=== PATIENT | female | born 1995 | race Caucasian/White ===

== ENCOUNTER 2024-05-05 21:44 | Emergency (ER) | payer OTHER, SELFPAY ==
[2024-05-05 21:50] VITALS: BP 127/77; PULSE 96; TEMP 36.7; O2SAT 95; BMI 24.4
--- NOTE | 2024-05-05 21:56 | XR_ITS ---
The [address] [address] Patient Name: GENE SIMMONS MRN: [id number] date: 1995 Sex: F Assigned Patient Location: ER Current Patient Location: ED.MAIN Accession/Order Number: [id number] Exam Date: 05/05/2024 22:11 Report Date: 05/05/2024 22:56 At the request of: PEREZ FREEMAN Procedure: XR chest 2V EXAM: XR chest 2V HISTORY: short of breath COMPARISON: None. TECHNIQUE: PA and lateral chest obtained. FINDINGS: There are patchy nodular reticular nodular infiltrates in both upper lobes. Suspected biapical pneumonia likely atypical variety slightly more prominent on the right. Sparing of lung bases and right middle lobe and lingula. No pleural effusion. Normal heart size and vasculature. Normal osseous structures. XR/XR chest 2V IMPRESSION: Bilateral upper lobe pneumonia suspected, right more than left. There may be a component of the mild bronchiectasis in right upper lobe, not mentioned above. Attention on follow-up imaging. Electronically authenticated by: GRETA CABRERA Date: 05/05/2024 22:56
[2024-05-05 22:07] VITALS: O2SAT 95
--- NOTE | 2024-05-05 22:09 | ED.SOB1 ---
HPI - SOB/Dyspnea General Chief Complaint: Shortness of Breath/Dyspnea Stated Complaint: SOB Time Seen by Provider: 05/05/24 22:02 Source: patient Mode of arrival: walk-in Limitations: no limitations History of Present Illness HPI Narrative: 29-year-old female presents for cough. She has been coughing up thick yellow phlegm and has had the symptoms for about 3 weeks. She finished a course of Cipro about 5 days ago, she has cystic fibrosis. She did not improve. No hemoptysis or known fever. 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 Related Data Previous Rx's ?Medication ?Instructions ?Recorded azithromycin 250 mg tablet See Rx Instructions PO .COMPLEX #6 05/05/24 (Zithromax Z-Bruce) tabs ciprofloxacin HCl 500 mg tablet 500 mg PO Q12H #20 tabs 05/05/24 (Cipro) Allergies Allergy/AdvReac Type Severity Reaction Status Date / Time No Known Drug Allergies Allergy Verified 05/05/24 21:56 Review of Systems ROS Narrative A ten point review of systems is negative except as noted above. PFSH PFSH Social History Little interest or pleasure in doing things: not at all Feeling down, depressed, or hopeless: not at all Exam Narrative Exam Narrative: Nurses note and vital signs reviewed and patient is not hypoxic. General: The patient appears well and in no apparent distress. Patient is resting comfortably on cart. Skin: Warm, dry, no pallor noted. There is no rash noted. Head: Normocephalic, atraumatic Eye: Normal conjunctiva, no drainage Ears, Nose, Mouth, and Throat: oral mucosa is moist. Nares patent. Cardiovascular: Regular Rate and Rhythm Respiratory: Patient is in no distress, no accessory muscle use, lungs are clear to auscultation, no wheezing, rales or rhonchi Back: non-tender GI: Soft and nontender Musculoskeletal: The patient has no evidence of calf tenderness, no pitting edema, symmetrical pulses noted bilaterally Neurological: A&O, normal speech Psychiatric: Cooperative Constitutional Vital Signs, click to edit/add: Last Vital Signs Temp 98.1 F 05/05/24 21:50 Pulse 96 H 05/05/24 21:50 Resp 18 05/05/24 21:50 BP 127/77 05/05/24 21:50 Pulse Ox 95 05/05/24 22:07 O2 Del Method Room Air 05/05/24 22:07 Course Vital Signs Vital signs: Vital Signs Temperature 98.1 F 05/05/24 21:50 Pulse Rate 96 H 05/05/24 21:50 Respiratory Rate 18 05/05/24 21:50 Blood Pressure 127/77 05/05/24 21:50 Pulse Oximetry 95 05/05/24 21:50 Oxygen Delivery Method Room Air 05/05/24 21:50 Temperature 98.1 F 05/05/24 21:50 Pulse Rate 96 H 05/05/24 21:50 Respiratory Rate 18 05/05/24 21:50 Blood Pressure 127/77 05/05/24 21:50 Pulse Oximetry 95 05/05/24 22:07 Oxygen Delivery Method Room Air 05/05/24 22:07 MDM - SOB/Dyspnea MDM Narrative Medical decision making narrative: Bilateral upper lobe pneumonia is identified on the x-ray per radiologist. She was recently on Cipro and did not improve. She has cystic fibrosis and is at risk for Pseudomonas. She was given both IV Zithromax and IV Cipro here and is prescribed p.o. Zithromax and Cipro for home and she will follow-up promptly with her hospice community liaison. Return to ED if symptoms worsen. Treatment diagnosis and follow-up were discussed with the patient. COVID and influenza test were negative. Differential Diagnosis Differential diagnosis: Likely community acquired pneumonia and other (COVID, influenza, URI) Lab Data Attestation: I reviewed the patient's lab results. Labs: Lab Results 05/05/24 Range/Units 21:59 Influenza Type A Ag Negative Influenza Type B Ag Negative SARS-CoV-2 Ag (CV2AG) Negative (NEGATIVE) Imaging Data Chest x-ray: Radiologist's impression: ITS Impressions Chest X-Ray 05/05/24 21:56 IMPRESSION: Bilateral upper lobe pneumonia suspected, right more than left. There may be a component of the mild bronchiectasis in right upper lobe, not mentioned above. Attention on follow-up imaging. Electronically authenticated by: GRETA CABRERA Date: 05/05/2024 22:56 Discharge Plan Discharge Chief Complaint: Shortness of Breath/Dyspnea Clinical Impression: Pneumonia Patient Disposition: Home, Self-Care Time of Disposition Decision: 23:41 Condition: Good Mode of Transportation: Private Vehicle Prescriptions / Home Meds: New azithromycin [Zithromax Z-Bruce] 250 mg tablet See Rx Instructions .ROUTE .COMPLEX Qty: 6 0RF Rx Instructions: For 250 mg dose pack: take 500 mg today (day 1), then 250 mg for 4 days (days 2-5) ciprofloxacin HCl [Cipro] 500 mg tablet 500 mg PO Q12H Qty: 20 0RF Print Language: Persian Instructions: Community Acquired Pneumonia (ED) Additional Instructions: Call your hospice community liaison in the morning and have prompt follow-up. Referrals: Physician,Non-Staff, MD [Physician] - 1 week
[2024-05-05 22:22] LABS: Influenza Virus A Antigen Negative; Influenza Virus B Antigen Negative; Internal Control Within Normal Limits; SARS-CoV-2 Ag NEGATIVE (NEGATIVE)
[2024-05-05] MEDS: AZITHROMYCIN 500 MG in 0.9 % SODIUM CHLORIDE 250 ML 250 MG IV (23:49)
[2024-05-06] MEDS: CIPROFLOXACIN HCL 500 MG TABLET PO (01:00)
[2024-05-06] MEDS: AZITHROMYCIN 250 MG TABLET 500 MG PO (01:00)
== END 2024-05-06 01:05 | disposition home or self-care (01) ==
PROVIDERS: Emergency Provider Emergency Medicine
DX: J18.9 Pneumonia, unspecified organism (principal); E84.9 Cystic fibrosis, unspecified
CPT/HCPCS: 71046; 87804; 87811; 96365; 99285; J0456

== ENCOUNTER 2024-11-03 19:26 | Emergency (ER) | payer SELFPAY ==
[2024-11-03] VITALS (23 sets, daily range): BP systolic 122; BP diastolic 82; PULSE 97–143; TEMP 37.3–39.4; O2SAT 98–100; BMI 25.4
--- NOTE | 2024-11-03 19:45 | ECG_ITS ---
The [facility] Test Date: 2024-11-03 Pat Name: GENE SIMMONS Department: Room: - Gender: Female Ceo Na: : 1995 Requested By: [id number] Order Number: [id number] Reading MD: SID WHITING M.D. Measurements Intervals [place] Rate: 138 P: 50 IL: 116 QRS: 48 QRSD: 72 T: 49 QT: 270 QTc: 351 Interpretive Statements 1120 Sinus tachycardia 2210 Short [place] interval 4068 Nonspecific [place] abnormality 8305 Short QTc interval 9150 abnormal ECG Compared to ECG 10/27/2016 22:57:16 Short [place] interval now present Heart rate has increased Electronically Signed On 11-04-2024 6:51:14 EDT by SID WHITING M.D.
--- OUTSIDE RECORDS SUMMARY | 2024-11-03 19:47 | XMS_ITS | CCD ---
Author Organization [facility] Care Team Providers Care Dustless Operator Name Role Phone ESTEVAN DALY Unavailable Unavailable JACOBSEN SILVER Houser Unavailable Unavailable ERASMO DAVIS Consulting Unavailable MARVIN KILLIAN Admitting Unavailable MARVIN KILLIAN Attending Unavailable Karen Rg Consulting Unavailable DO Michael Campbell Attending Provider [facility] Primary Care Provider DO Michael Christianson Attending Provider [phone] MD Lissette Merino Referring Provider NONE, XXXX Primary Care Physician Unavailab Martina Allison Unavailable Unavailable Óscar Morales Admitting Unavailable Óscar Morales Referring Unavailable Óscar Morales Attending Unavailable Óscar Morales Referring Unavailable Cornelius Moralesson Moncho Attending Unavailable Cornelius Moralesson A Admitting Unavailable Physician, No Pcp Primary Care Provider UnavailJEANETTE Nogueira Attending Unavailable PHYSICIAN, NO PCP Primary Care Unavailable JEREMY HERNANDEZ Attending Unavailable NO, PHYSICIAN Primary Care Unavailable MARGIE LOUIS Consulting Xander more Mast - FHSJeanette Attending Unavailable Mast - [facility], Jeanette Admitting Unavailable Reese Murphy Referring Unavailable Anup EL-Iqra MEEHAN Primary Care Provider Medications Current Medications Medication Drug Class(es) Dates Sig (Normalized) Sig (Original) acetaminophen 325 mg / oxyCODONE hydrochloride 5 mg oral tablet (1 source) Opioid Agonist Start: 07-25-2022 Percocet 5 mg-325 mg oral tablet See Instructions, 40 tab(s), Refill(s) 0, 1-2 tab(s) Oral q4hr, [facility]/pharmacy #[id number], 152, cm, 07/18/22 6:18:00 EST, Height/Length Dosing, 59.8, kg, 07/18/22 6:18:00 EST, Weight Dosing Start Date: 07/25/22 Status: Ordered albuterol 0.83 mg/ml inhalation solution (20 sources) beta2-Adrenergic Agonist Start: 05-04-2023 take 3 mL by inhalation every four hours albuterol (PROVENTIL,VENTOLI N) 2.5 mg /3 mL (0.083 %) nebulizer solution Indications: Cystic fibrosis exacerbation ([facility]) Inhale 3 mL (2.5 mg total) by nebulization every 4 (four) hours while awake. 75 mL 12 05/04/2023 Active Start: 04-22-2023 albuterol (PRO VENTIL,VENTOLIN) 2.5 mg /3 mL (0.083 %) nebulizer solution Indications: Cystic fibrosis of the lung ([facility]) Twice daily and every 4 hours as needed 360 mL 11 04/22/2023 Active Start: 04-22-2023 albuterol (PRO AIR HFA) 90 mcg/actuation inhaler Indications: Cystic fibrosis of the lung ([facility]) , Mild intermittent asthma without complication Daily and every 4 hours as needed 18 g 11 04/22/2023 Active Start: 07-17-2022 take 2.5 mg by inhal ation every six hours albuterol 0.083% Inh Cindy 3 mL 2.5 mg, 3 mL, NEB, q6hr, Refill(s) 0, cycstic fibrosis, Other (see comment) Start Date: 07/17/22 Status: Ordered Start: 07-17-2022 take 2 puff(s) by in halation every six hours Albuterol (Eqv-ProAir HFA) 2 puff(s), Inhalation, q6hr, Refill(s) 0, cycstic fibrosis, Other (see comment) Start Date: 07/17/22 Status: Ordered take 1.25 mg by inha lation every six hours as needed albuterol 1.25 mg/3 mL nebulizer solution Take 3 mL (1.25 mg total) by nebulization every 6 (six) hours if needed for wheezing. 0 Active amylase 170421 unt / lipase 49138 unt / protease 44528 unt delayed release oral capsule (9 sources) Start: 04-22-2023 take 9 capsules by mouth at mealtime, then take 4 capsules by mouth once daily at mealtime, then take 3 capsules by mouth once daily CREON 24,000-76,000 -120,000 unit capsule,delayed release(DR/EC) Indications: Cystic fibrosis of the lung (CMS-HCC) , Cystic fibrosis of pancreas (CMS-HCC) Takes 9 capsules with meals and 4 capsules with snacks by mouth daily. Allowing for 3 meals and 3 snacks per day. 1170 capsule 11 04/22/2023 Active Start: 07-17-2022 Creon See Inst ructions, with each meal and snack Cystic fibrosis, Refills(s) 0, Other (see comment) Start Date: 07/17/22 Status: Ordered Start: 03-10-2022 Lipase-Proteas e-Amylase (Creon) 24,000-76,000 -120,000 unit Capsule,Delayed Release(Dr/Ec) Active 9 CAP PO Use as Directed March 10, 2022 12:00am 9 caps with meals, 4 with snacks AquADEKs oral capsule (2 sources) Start: 07-17-2022 AquADEKs oral capsule 1 cap(s), Oral, Daily, 60 cap(s), Refill(s) 0, Prophylaxis Start Date: 07/17/22 Status: Ordered azithromycin 500 mg oral tablet (9 sources) Macrolide Antimicrobial Start: 05-04-2023 End: 06-20-2024 azithromycin (ZITHROMAX) 500 mg tablet Indications: Cystic fibrosis of the lung (CMS-HCC) Take 500mg by mouth Thursday, Thursday, and Thursday. 12 tablet 11 05/04/2023 06/20/2024 Active Start: 07-17-2022 take 1 tablet by kenia th once daily Zithromax 500 mg oral tablet 500 mg = 1 tab(s), Oral, Daily, cystic fibrosis, Refills(s) 0, Other (see comment) Start Date: 07/17/22 Status: Ordered Start: 03-10-2022 take 500 mg by mouth once Azit hromycin Active 500 MG PO every Thursday, Thursday, and Thursday March 10, 2022 12:00am 60 actuat budesonide 0.09 mg/actuat dry powder inhaler (9 sources) Corticosteroid Start: 07-17-2022 Pulmicort Flex haler 90 mcg/inh inhalation powder 180 mcg, Inhalation, BID, Refill(s) 0, cystic fibrosis, Other (see comment) Start Date: 07/17/22 Status: Ordered Start: 03-10-2022 take 180 ug by inhal ation twice daily Budesonide (Pulmicort Flexhaler) 180 mcg/actuation Aerosol Powdr Breath Activated Active 2 INH INHALATION Twice daily March 10, 2022 12:00am Start: 02-01-2020 budesonide (PU LMICORT) 0.5 mg/2 mL nebulizer solution Indications: Chronic pansinusitis Use intranasally with normal saline sinus rinses BID 120 mL 2 02/01/2020 Active cetirizine hydrochloride 10 mg oral capsule (9 sources) Histamine-1 Receptor Antagonist Start: 07-17-2022 take 1 capsule by mouth once daily as needed Zyrtec Liquid Gels 10 mg oral capsule 10 mg = 1 cap(s), Oral, Daily, PRN for allergy symptoms, # 40 cap(s), Refills(s) 0 Start Date: 07/17/22 Status: Ordered Start: 04-02-2022 take 1 tablet by kenia th in the morning cetirizine (ZyrTEC) 10 mg tablet Indications: Mild intermittent asthma without complication , Cystic fibrosis of the lung (CMS-HCC) TAKE 1 TABLET (10 MG TOTAL) BY MOUTH IN THE MORNING. 30 tablet 11 04/02/2022 Active Start: 03-10-2022 take 10 mg by mouth once daily Cetirizine Active 10 MG PO Daily March 10, 2022 12:00am cholecalciferol 1.25 mg oral capsule (8 sources) Vitamin D Start: 04-22-2023 take 1 capsule by mouth every week cholecalciferol (VITAMIN D3) 50,000 units capsule Indications: Cystic fibrosis of the lung (CMS-HCC) TAKE 1 CAPSULE BY MOUTH ONCE A WEEK 4 capsule 11 04/22/2023 Active Start: 03-10-2022 take 1 tablet by kenia th once daily Cholecalciferol (Vitamin D3) (Vitamin D3) 125 mcg (5,000 unit) Tablet Active 125 MCG PO Daily March 10, 2022 12:00am take 1 tablet by kenia th once daily cholecalciferol (VITAMIN D-3) 10 mcg (400 unit) tablet Take 1 tablet (400 Units total) by mouth 1 (one) time each day. 0 Active docusate sodium 100 mg oral capsule (1 source) Start: 07-25-2022 take 1 capsule by mouth twice daily as needed for constipation Colace 100 mg Cap 100 mg = 1 cap(s), Oral, BID, PRN for constipation, # 20 cap(s), Refills(s) 0, Pharmacy: [facility]/pharmacy #[id number], 152, cm, 07/18/22 6:18:00 EST, Height/Length Dosing, 59.8, kg, 07/18/22 6:18:00 EST, Weight Dosing Start Date: 07/25/22 Status: Ordered dornase denise 1 mg/ml inhalation solution (9 sources) Recombinant Human Deoxyribonuclease 1 Start: 04-22-2023 take 1 dose by inhalation once daily dornase alpha (PULMOZYME) 1 mg/mL nebulizer solution Indications: Cystic fibrosis of the lung ([facility]) Inhale 1 vial with nebulizer daily. 75 mL 11 04/22/2023 Active Start: 07-17-2022 Pulmozyme 2.5 mg, NEB, Daily, cystic fibrosis, Refills(s) 0, Other (see comment) Start Date: 07/17/22 Status: Ordered Start: 03-10-2022 Dornase Denise ( Pulmozyme) 1 mg/mL Solution Active 2.5 MG INHALATION Daily March 10, 2022 12:00am ferrous sulfate 325 mg oral tablet (5 sources) Start: 04-02-2022 take 1 tablet by mouth once daily at breakfast ferrous sulfate 325 (65 FE) mg tablet Indications: Cystic fibrosis of the lung ([facility]) , Iron deficiency TAKE 1 TABLET BY MOUTH EVERY DAY WITH BREAKFAST 30 tablet 3 04/02/2022 Active fexofenadine hydrochloride 180 mg oral tablet (2 sources) Histamine-1 Receptor Antagonist Start: 03-10-2022 take 180 mg by mouth once daily Fexofenadine Active 180 MG PO Daily March 10, 2022 12:00am FLUoxetine 20 mg oral capsule (5 sources) Serotonin Reuptake Inhibitor take 1 capsule by mouth in the morning FLUoxetine (PROzac) 20 mg capsule Take 1 capsule (20 mg total) by mouth in the morning. Active fluticasone propionate 0.05 mg/actuat metered dose nasal spray (5 sources) Corticosteroid Start: 04-22-2023 take 2 spray(s) nasal route in the morning fluticasone propionate (FLONASE) 50 mcg/actuation nasal spray Indications: Cystic fibrosis of the lung ([facility]) , Chronic pansinusitis Administer 2 sprays into each nostril in the morning. 16 mL 11 04/22/2023 Active ibuprofen 600 mg oral tablet (1 source) Nonsteroidal Anti-inflammatory Drug Start: 07-25-2022 take 1 tablet by mouth every eight hours as needed for pain ibuprofen 600 mg Tab 600 mg = 1 tab(s), Oral, q8hr, PRN as needed for pain, with food or milk, # 50 tab(s), Refills(s) 0, Pharmacy: [facility]/pharmacy #[id number], 152, cm, 07/18/22 6:18:00 EST, Height/Length Dosing, 59.8, kg, 07/18/22 6:18:00 EST, Weight Dosing Start Date: 07/25/22 Status: Ordered meclizine hydrochloride 25 mg oral tablet (1 source) Antiemetic Start: 10-26-2022 End: 11-02-2022 take 1 tablet by mouth four times daily meclizine (ANTIVERT) 25 mg tablet Take 1 tablet (25 mg total) by mouth 4 (four) times a day for 7 days. 28 tablet 0 10/26/2022 11/02/2022 Active montelukast 10 mg oral tablet (10 sources) Leukotriene Receptor Antagonist Start: 04-22-2023 take 1 tablet by mouth once daily montelukast (SINGULAIR) 10 mg tablet Indications: Cystic fibrosis of the lung ([facility]) , Mild intermittent asthma without complication TAKE 1 TABLET BY MOUTH EVERY DAY 30 tablet 11 04/22/2023 Active Start: 03-10-2022 take 10 mg by mouth once daily Singulair 10 mg, Oral, Daily, cystic fibrosis, Refills(s) 0, Other (see comment) Start Date: 07/17/22 Status: Ordered omeprazole 40 mg delayed release oral capsule (9 sources) Proton Pump Inhibitor Start: 07-17-2022 omeprazo le 40 mg Cap-DR 40 mg = 1 cap(s), Oral, Daily, Refills(s) 0, Control of stomach acid Start Date: 07/17/22 Status: Ordered Start: 04-02-2022 take 1 capsule by mo [facility] twice daily omeprazole (PriLOSEC) 20 mg capsule Indications: Cystic fibrosis of the lung ([facility]) TAKE 1 CAPSULE BY MOUTH TWICE A DAY 60 capsule 11 04/02/2022 Active Start: 03-10-2022 take 20 mg by mouth once daily Omeprazole Active 20 MG PO Daily March 10, 2022 12:00am pirbuterol (2 sources) Start: 03-10-2022 take 0.4 ug by inhalation every four to six hours Pirbuterol Active 0.4 MCG INHALATION EVERY 4-6 HOURS March 10, 2022 12:00am sulfamethoxazole 800 mg / trimethoprim 160 mg oral tablet (2 sources) Dihydrofolate Reductase Inhibitor Antibacterial, Sulfonamide Antimicrobial Start: 03-10-2022 take 1 tablet by mouth every twelve hours Sulfamethoxazol e-Trimethoprim (Bactrim Ds) 800-160 mg tablet Active 1 TAB PO Q12H 10 March 10, 2022 12:00am Tobramycin (4 sources) Aminoglycoside Antibacterial Start: 07-17-2022 tobramycin 300 mg, NEB, BID, cystic fibrosis, Refills(s) 0, Other (see comment) Start Date: 07/17/22 Status: Ordered Start: 03-10-2022 Tobramycin In 0.225 % Nacl ([place]) 300 mg/5 mL Solution For Nebulization Active 300 MG INHALATION Twice daily March 10, 2022 12:00am separate doses by at least 6 hours, 28 days on 28 days off traMADol hydrochloride 50 mg oral tablet (2 sources) Opioid Agonist Start: 03-10-2022 take 1 tablet by mouth every six hours Tramadol (Ultram) 50 mg tablet Active 50 MG PO Q6H 30 7 March 10, 2022 12:00am triamcinolone acetonide 0.055 mg/actuat metered dose nasal spray (2 sources) Corticosteroid Start: 03-10-2022 take 1 spray(s) nasal route once daily Triamcinolone Acetonide (Nasacort) 55 mcg Aerosol,[place] Active 1 SPRAY INTRANASAL Daily March 10, 2022 12:00am administer into each nostril valACYclovir 1000 mg oral tablet (2 sources) Herpesvirus Nucleoside Analog DNA Polymerase Inhibitor, Herpes Simplex Virus Nucleoside Analog DNA Polymerase Inhibitor, Herpes Zoster Virus Nucleoside Analog DNA Polymerase Inhibitor Start: 03-10-2022 Valacyclovir (Valtrex) 1 gram Tablet Active 1000 MG PO Q8H March 10, 2022 12:00am Vitamin D 1000 intl units (25 mcg) Tab (2 sources) Start: 07-17-2022 take 1 tablet by mouth once daily Vitamin D 1000 intl units (25 mcg) Tab 25 mcg = 1 tab(s), Oral, Daily, Refills(s) 0, Prophylaxis Start Date: 07/17/22 Status: Ordered Completed/Discontinued Medications Medication Drug Class(es) Dates Sig (Normalized) Sig (Original) iopamidoL (ISOVUE-370) 370 mg iodine /mL (76 %) injection 75 mL (1 source) Start: 10-26-2022 End: 10-26-2022 iopamidoL (ISOVUE-370) 370 mg iodine /mL (76 %) injection 75 mL MVW COMPLETE FORMULATION D5000 5,000-800 unit-mcg capsule (5 sources) Start: 03-10-2022 take 2 capsules by mouth once daily MVW COMPLETE FORMULATION D5000 5,000-800 unit-mcg capsule Indications: Cystic fibrosis of the lung (CMS-HCC) , Vitamin deficiency TAKE 2 CAPSULES BY MOUTH ONCE DAILY 60 capsule 11 03/10/2022 Active 125 ml sodium chloride 9 mg/ml prefilled syringe (1 source) Start: 10-26-2022 End: 10-26-2022 sodium chloride 0.9 % flush 20 mL Problems Active Problems Problem Classification Problem Date Documented Date Episodic/Chronic Abdominal pain (4 sources) Unspecified abdominal pain; Translations: [UNSPECIFIED ABDOMINAL PAIN] Onset: 0 Episodic Conditions associated with dizziness or vertigo (2 sources) Vertigo; Translations: [Dizziness and giddiness] Onset: 3 Episodic Cystic fibrosis (20 sources) Cystic fibrosis, unspecified; Translations: [Cystic fibrosis] Onset: 6 Resolved: 9 07-17-2022 Chronic Esophageal disorders (5 sources) Gastroesophageal reflux disease; Translations: [Gastro-esophageal reflux disease without esophagitis] Onset: 7 02-24-2017 Chronic Immunity disorders (5 sources) Hyperimmunoglobulin E syndrome; 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] Onset: 9 01-19-2019 Chronic Immunizations and screening for infectious disease (11 sources) Encounter for screening for infections with a predominantly sexual mode of transmission; Translations: [Infectious disease carrier] Onset: 6 02-04-2017 Episodic Intracranial injury (4 sources) Concussion with less than 1 hour loss of consciousness; Translations: [Concussion with loss of consciousness of 30 minutes or less, initial encounter] Onset: 3 Episodic Mood disorders (5 sources) Severe recurrent major depression without psychotic features; Translations: [Major depressive disorder, recurrent severe without psychotic features] Onset: 3 05-01-2023 Chronic Nutritional deficiencies (5 sources) Vitamin D deficiency; Translations: [Vitamin D deficiency, unspecified] Onset: 9 09-06-2018 Chronic Other aftercare (1 source) Other long chain beamer (current) drug therapy; Translations: [OTH SKILLED NURSING CURRENT DRUG THERAPY] Onset: 0 Episodic Other gastrointestinal disorders (1 source) Constipation, unspecified; Translations: [CONSTIPATION UNSPECIFIED] Onset: 0 Episodic Other injuries and conditions due to external causes (2 sources) Unspecified injury of head, initial encounter; Translations: [Unspecified injury of head, initial encounter] Onset: 3 Episodic Other upper respiratory infections (10 sources) Chronic sinusitis; Translations: [Chronic sinusitis, unspecified] Onset: 7 02-24-2017 Chronic Ovarian cyst (1 source) Unspecified ovarian cyst, right side; Translations: [UNSPECIFIED OVARIAN CYST RIGHT SIDE] Onset: 0 Skin and subcutaneous tissue infections (2 sources) Pilonidal cyst; Translations: [Pilonidal cyst without abscess] 03-10-2022 Episodic Past or Other Problems Problem Classification Problem Date Documented Da te Episodic/Chronic Asthma (5 sources) Asthma; Translations: [Unspecified asthma, uncomplicated] Onset: 02-24-2017 Resolved: 02-01-2020 02-01-2020 Chronic Fluid and electrolyte disorders (5 sources) Moderate dehydration; Translations: [Dehydration] Onset: 06-26-2016 Resolved: 11-10-2018 11-10-2018 Episodic Influenza (5 sources) Influenza due to Influenza A virus; Translations: [Influenza due to other identified influenza virus with other respiratory manifestations] Onset: 06-26-2016 Resolved: 02-24-2017 02-24-2017 Episodic Mood disorders (5 sources) Mood disorders Onset: 09-03-2022 09-03-2022 Other ear and sense organ disorders (5 sources) Bilateral tinnitus; Translations: [Tinnitus, bilateral] Onset: 01-19-2019 01-19-2019 Episodic Other non-traumatic joint disorders (5 sources) Bilateral hip joint pain; Translations: [Pain in right hip] Onset: 02-25-2018 Resolved: 09-03-2022 09-03-2022 Episodic Other non-traumatic joint disorders (5 sources) Bilateral pain of joint of hands; Translations: [Pain in joints of right hand] Onset: 02-25-2018 Resolved: 09-03-2022 09-03-2022 Episodic Other upper respiratory disease (5 sources) Deviated nasal septum; Translations: [Deviated nasal septum] Onset: 02-24-2017 02-24-2017 Episodic Pneumonia (1 source) Unspecified bacterial pneumonia; Translations: [Unspecified bacterial pneumonia] Onset: 04-14-2017 Episodic Residual codes; unclassified (5 sources) Finger clubbing; Translations: [Clubbing of fingers] Onset: 02-25-2018 Resolved: 02-01-2020 02-01-2020 Episodic Urinary tract infections (11 sources) Cystitis, unspecified without hematuria; Translations: [Urinary tract infectious disease] Onset: 04-24-2019 Resolved: 02-01-2020 02-01-2020 Episodic Viral infection (5 sources) Herpes simplex type 1 infection; Translations: [Herpesviral infection, unspecified] Onset: 08-06-2016 08-06-2016 Episodic Results Test Name Value Interpretation Reference Range Facility HIV 1/O/2 Antigen/Antibodyon 05-31-2024 HIV Screen 4th Generation Non-Reactive Normal Non Reactive [facility] Comment on above: Order Comment: Haseeb vanessa for Exam Screening examination for STI Result Comment: HIV- 1/HIV-2 antibodies and HIV-1 p24 antigen were NOT detected. There is no laboratory evidence of HIV infection. HIV Negative Performed at: [address] [id number] Sus[employer] Artist Supervisor: Rudolph Smith PhD, Phone: [phone] Performed By: #### R PA W RFX, HIV SCREEN #### [facility] , RPR w/rfx to Quant TP Abson 05-31-2024 RPR, Rfx Quant RPR Non-Reactive Normal Non Reactive [facility] Comment on above: Order Comment: Reaso n for Exam Screening examination for STI Result Comment: Perf ormed at: CB - [facility] [address], [place], [place] [id number] Suspect Artist Supervisor: Rudolph Smith PhD, Phone: [phone] PERFORMED BY: [facility] [address] [place] [address] PATHOLOGIST DIRECTOR PART ROOSEVELT SMITH M.D. Performed By: #### R PA W RFX, HIV SCREEN #### [facility] , AFB CULTURE(CONCENTRATED)on 04-22-2023 Mycobacterium sp identified Org specific cx Nom (Unsp spec) AFB SMEAR NO ACID FAST BACILLI (CONCENTRATED SMEAR) CULTURE RESULTS NO ACID FAST BACILLI ISOLATED IN 8 WEEKS Normal [facility] Comment on above: Performed By: #### 5 43-9 #### [facility] ([id number]) [address] [place] [address], [address] [place] [address] Basic metabolic 2000 panelon 10-26-2022 Anion gap [Moles/Vol] 6 mmol/L Normal 6-18 [facility] Comment on above: Performed By: #### 2 4321-2 #### [facility] [place] [address] Calcium [Mass/Vol] 8.7 mg/dL Low 8.9-10.3 [facility] Comment on above: Performed By: #### 2 4321-2 #### [facility] [address] [place] [address] Chloride [Moles/Vol] 108 mmol/L High 98-107 [facility] Comment on above: Performed By: #### 2 4321-2 #### [facility] [address] [place] [address] CO2 [Moles/Vol] 23 mmol/L Normal 22-32 [facility] Comment on above: Performed By: #### 2 4321-2 #### [facility] [address] [place] [address] Creatinine [Mass/Vol] 0.91 mg/dL Normal 0.60-1.30 [facility] Comment on above: Performed By: #### 2 4321-2 #### [facility][note 3] [place] [address] GFR/1.73 sq M.predicted among non-blacks MDRD (S/P/Bld) [Vol rate/Area] 89 mL/min/{1.73_m2} Normal >=60 [facility] Comment on above: Result Comment: Effe ctive March 30, 2022, calculation based on the?Chronic Kidney Disease Epidemiology Collaboration (CKD-EPI) equation refit?without adjustment for race. Performed By: #### 2 4321-2 #### [facility][note 3] [place] [address] Glucose [Mass/Vol] 86 mg/dL Normal 70-99 [facility] Comment on above: Performed By: #### 2 4321-2 #### [facility][note 3] [place] [address] Potassium [Moles/Vol] 4.0 mmol/L Normal 3.6-5.1 [facility] Comment on above: Performed By: #### 2 4321-2 #### [facility] [place] [address] Sodium [Moles/Vol] 137 mmol/L Normal 136-145 [facility] Comment on above: Performed By: #### 2 4321-2 #### [facility] [place] [address] Urea nitrogen [Mass/Vol] 9 mg/dL Normal 8-20 [facility] Comment on above: Performed By: #### 2 4321-2 #### [facility] [address] [place] [address] Urea nitrogen/Creatinine [Mass ratio] 9.9 mg/mg Low 12.0-20.0 [facility] Comment on above: Performed By: #### 2 4321-2 #### [facility] [address] [place] [address] Anion gap [Moles/Vol] 6 mmol/L 6 - 18 [facility] Calcium [Mass/Vol] 8.7 mg/dL Low 8.9 - 10. 3 mg/dL [facility] Chloride [Moles/Vol] 108 mmol/L High 98 - 10 7 mmol/L [facility] CO2 [Moles/Vol] 23 mmol/L 22 - 32 mmol/L [facility] Creatinine [Mass/Vol] 0.91 mg/dL 0.60 - 1.30 mg/dL [facility] GFR/1.73 sq M.predicted among non-blacks MDRD (S/P/Bld) [Vol rate/Area] 89 mL/min/{1.73_m2} - [facility] Comment on above: Effective March 30, 2022, calculation based on the Chronic Kidney Disease Epidemiology Collaboration (CKD-EPI) equation refit without adjustment for race. Glucose [Mass/Vol] 86 mg/dL 70 - 99 mg/dL [facility] Interpretation and review of laboratory results Abnormal [facility] Potassium [Moles/Vol] 4.0 mmol/L 3.6 - 5.1 mmol/L [facility] Sodium [Moles/Vol] 137 mmol/L 136 - 145 mmol/[facility] [Mass/Vol] 9 mg/dL 8 - 20 mg/dL [facility] Urea nitrogen/Creatinine [Mass ratio] 9.9 mg/mg Low 12.0 - 20.[address] [facility] [address] ANGIO NECK WO AND/OR W CO NTRASTon 10-26-2022 CT ANGIO NECK WO AND/OR W CONTRAST EXAMINATION TYPE: CT ANGIO NECK WO AND/OR W CONTRAST with 3-D postprocessing. DATE OF EXAM : 10/26/2022 4:18 PM HISTORY: vertigo post trauma, r/o vertebral artery dissection, COMPARISON: NONE FINDINGS: Noncontrast head CT: No acute intracranial hemorrhage, mass effect, midline shift, or extra-axial collection. Salcido-white matter differentiation is preserved. No hydrocephalus. Mastoid air cells are well aerated. Calvarium is intact. CTA HEAD: No large vessel occlusion or clinically significant stenosis. No abnormal enhancement of the parenchyma. The dural venous sinuses are patent. Evidence of prior endoscopic sinus surgery. Diffuse mucosal thickening of the paranasal sinuses. CTA NECK: Classic 3 vessel aortic arch anatomy. Great vessel origins are preserved. The common carotid and internal carotid arteries are normal in caliber and widely patent. The origins and cervical portions of the vertebral arteries are normal in caliber and widely patent. There is abnormal peribronchial thickening in the visualized lung apices, greater on the right. There is patchy consolidation and mucus plugging. These findings are in keeping with her history of cystic fibrosis. No acute bony findings. IMPRESSION: Noncontrast head CT: No acute intracranial abnormality. CTA HEAD: No large vessel occlusion or clinically significant stenosis. CTA NECK: No large vessel occlusion, stenosis, or evidence of dissection. Paranasal sinus mucosal thickening. Mucus plugging and peribronchial wall thickening in the visualized lung apices consistent with cystic fibrosis. -------- FINAL REPORT -------- Dictated By: Selene Samuel Dictated Date: 10/26/2022 17:03 Assigned Physician: Selene Samuel Reviewed and Electronically Signed By: Selene Samuel Signed Date: 10/26/2022 17:10 Workstation ID: [id number] Transcribed By: Self Edit Transcribed Date: 10/26/2022 17:03 [address] [facility] [address] Angio Neck wo and/or w Co ntraston 10-26-[address]: No acute intracranial abnormality. CTA HEAD: No large vessel occlusion or clinically significant stenosis.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 REPAIR(Right), POSSIBLE REPAIR(Right), POSSIBLE REPAIR(Right), SHOULDER BICEPS SHOULDER BICEPS SHOULDER BICEPS TENODESIS(Right) TENODESIS(Right) TENODESIS(Right) Comments assisted with block and helping as needed Last Modified By: Karina Ordaz Kelsie E Sayler, Kelsie E 07/25/22 10:10:15 07/25/22 10:10:15 07/25/22 10:10:15 General Comments: evan pena, arthrex rep, in attendance,carlos eduardo navarrete. Perioperative Protocols FT Pre-Care Text: Implements protective measures prior to operative or invasive procedure, confirms identity before the operative or invasive procedure, verifies operative procedure, surgical site, and laterality Entry 1 Procedure(s) SHOULDER ARTHROSCOPY W/ Patient Identity Birthday, ID Band POSSIBLE REPAIR(Right), Verified (select at Check, Patient SHOULDER BICEPS least 2): Participation TENODESIS(Right) Consents / H and P Anesthesia Consent, Operative Site Present Verified HandP, Surgery/Procedure Marking Verified Consent, Transfusion Consent Surgical Site Yes Laterality Verified Yes Verified Procedure Verified Yes Correct Patient Yes Position Verified Availability Equipment, Implant, Prep Dry Yes Verified (If Medication Applicable) PreOp Antibiotic Yes Time Out Dennis Lake CRNA, Given Participants Óscar Morales DO, Sayler, Kelsie E, Slusher SNOWBOARD INSTRUCTOR, Marge Herron RN, Melnaie Time Out Complete 07/25/22 07:58:00 Outcomes Met? Yes Last Modified By: Karina Ordaz 07/25/22 08:16:03 Post-Care Text: The patient is free from signs and symptoms of injury caused by extraneous objects Allergy Information FT Pre-Care Text: Verifies allergies Entry 1 Allergies Reviewed? Yes Allergies Reviewed Self/Patient With Outcomes Met? Yes Last Modified By: Karina Ordaz 07/25/22 06:51:16 Post-Care Text: The patient received appropriate medication(s) safely administered during the perioperative period Surgical Procedures FT Entry 1 Entry 2 Procedure Description Procedure SHOULDER ARTHROSCOPY W/ SHOULDER BICEPS POSSIBLE REPAIR TENODESIS Modifiers Right Right Surgeon Description RIGHT SHOULDER RIGHT SHOULDER ARTHROSCOPY WITH LABRAL ARTHROSCOPY WITH LABRAL REPAIR AND BICEP REPAIR AND BICEP TENODESIS, SUBACROMIAL TENODESIS, SUBACROMIAL DECOMPRESSION, DISTAL DECOMPRESSION, DISTAL CLAVICLE EXCISION CLAVICLE EXCISION Primary Procedure Yes No Primary Surgeon Óscar Morales DO, DO, Jason A Start 07/25/22 07:59:00 07/25/22 07:59:00 Stop 07/25/22 09:50:00 07/25/22 09:50:00 Anesthesia Type General General Surgical Service Orthopedics Orthopedics Wound Class 1 - Clean 1 - Clean Last Modified By: Karina Ordaz Kelsie E 07/25/22 09:59:34 07/25/22 09:59:34 General Case Data FT Pre-Care Text: Classifies surgical wound, implements aseptic technique, initiates traffic control Entry 1 Case Information OR OR 7 FT Case Level Level (more content not included)... [facility] Consenton 07-28-2022 Consent [id number]#1.0 0CD:127 [facility] Discharge Instructionson Discharge Instructions [id number]#1.0 0CD:127 [facility] IntraOperative Documentson 0 07-28-2022 IntraOperative Documents [id number]#1.0 0CD:127 [facility] Pre-Op Evaluationon 07-28-19 Pre-Op Evaluation [id number]#1.0 0CD:127 [facility] Preoperative Documentson Preoperative Documents [id number]#1.0 0CD:127 [facility] Preoperative Documents [id number]#1.0 0CD:127 [facility] Consent for Treatmenton Consent for Treatment [id number]#1.0 0CD:127 [facility] H&P Updateon 07-25-2022 H&P Update [id number]#1. 00CD:127 [facility] Inpatient Patient Summaryon 07-25-2022 Inpatient Patient Summary [address] [address] [facility] Clinical Discharge Instructions PERSON INFORMATION Name: KAREN NAVA PHYSICIANS Admitting Physician: Óscar Morales DO Attending Physician: Óscar Morales DO PCP: NONE, XXXX Discharge Diagnosis: Comment: PATIENT EDUCATION INFORMATION Instructions: Shoulder Cryocuff Patient Instructions - FT (CUSTOM); Post Op Patient Instructions - FT (Custom) (CUSTOM); Alice Morales - After Your Shoulder Arthroscopy (Custom) Medication Leaflets: Follow up: With: Address: When: Óscar Morales [address] [place] [id number] Business (1) MEDICATION LIST New Medications [id number], [address], [place] [phone], [phone] acetaminophen-oxycodon e (Percocet 5 mg-325 mg oral tablet) 1-2 tab(s) Oral q4hr. Refills: 0. docusate (Colace 100 mg Cap) 1 Capsules By Mouth 2 times a day as needed for constipation. Refills: 0. ibuprofen (ibuprofen 600 mg Tab) 1 Tablets By Mouth every 8 hours as needed as needed for pain. with food or milk. Refills: 0. Medications to Continue with No Changes Other Medications albuterol (Albuterol (Eqv-ProAir HFA)) 2 Puffs Inhalation every 6 hours. cycstic fibrosis. albuterol (albuterol 0.083% Inh Cindy 3 mL) 3 Milliliter Nebulized inhalation (aerosol) every 6 hours. cycstic fibrosis. azithromycin (Zithromax 500 mg oral tablet) 1 Tablets By Mouth every day. cystic fibrosis. budesonide (Pulmicort Flexhaler 90 mcg/inh inhalation powder) 180 Microgram Inhalation 2 times a day. cystic fibrosis. cetirizine (Zyrtec Liquid Gels 10 mg oral capsule) 1 Capsules By Mouth every day as needed for allergy symptoms. cholecalciferol (Vitamin D 1000 intl units (25 mcg) Tab) 1 Tablets By Mouth every day. dornase denise (Pulmozyme) 2.5 Milligram Nebulized inhalation (aerosol) every day. cystic fibrosis. montelukast (Singulair) 10 Milligram By Mouth every day. cystic fibrosis. multivitamin with minerals (AquADEKs oral capsule) 1 Capsules By Mouth every day. omeprazole (omeprazole 40 mg Cap-DR) 1 Capsules By Mouth every day. pancrelipase (Creon) with each meal and snack Cystic fibrosis. tobramycin 300 Milligram Nebulized inhalation (aerosol) 2 times a day. cystic fibrosis. Comment: Normal [facility] Main OR PACU I Recordon Main OR PACU I Record PACU Phase I Docum ent Type FT Summary Primary Physician: Óscar Morales DO Finalized Date/Time: 07/25/22 10:30:13 Pt. Name: KAREN NAVA./Sex: 1995 Female Med Rec #: [id number] Physician: Óscar Morales DO Financial #: [id number] Pt. Type: A Room/Bed: [place] [address] Admit/Disch: 07/25/22 05:44:41 - Institution: Case Times PACU I FT Pre-Care Text: Identifies barriers to communication and implements measures to provide psychological support Develops individualized plan of care, and ensures continuity of care Maintains patient's dignity and privacy, and maintains patient confidentiality Identifies and reports philosophical, cultural, and spiritual beliefs and values Identifies individual values and wishes concerning care Implements aseptic technique, and administers prescribed antibiotic therapy and immunizing agents as ordered Evaluates postoperative tissue perfusion Implements thermoregulation measures, and monitors body temperature Evaluates postoperative respiratory status Evaluates postoperative cardiac status Evaluates postoperative neurological status Assesses pain control, collaborated in initiating patient-controlled analgesia and implements alternative methods of pain control Verifies allergies, administers prescribed medications and solutions, evaluates response to medications Entry 1 In PACU I 07/25/22 10:05:00 Discharge from PACU 07/25/22 10:35:00 I Outcomes Met? Yes Last Modified By: Liberty Camargo RN 07/25/22 10:29:58 Post-Care Text: The patient demonstrates knowledge of the expected response to the operative or invasive procedure The patient's care is consistent with the individualized perioperative plan of care The patient's right to privacy is maintained The patient's value system, lifestyle, ethnicity, and culture are considered, respected, and incorporated into the perioperative plan of care The patient participates in decisions affecting his or her perioperative plan of care The patient is free from signs and symptoms of infection The patient has wound/tissue perfusion consistent with or improved from baseline levels established preoperatively The patient is at or returning to normothermia at the conclusion of the immediate postoperative period The patient's respiratory function is consistent with or improved from baseline levels established preoperatively The patient's cardiovascular status is consistent with or improved from baseline levels established preoperatively The patient's cardiovascular status is consistent with or improved from baseline levels established preoperatively The patient demonstrates and/or reports adequate pain control throughout the perioperative period The patient received appropriate medication(s), safely administered during the perioperative period Acuity Level PACU I FT Entry 1 Start Time 07/25/22 10:05:00 Stop Time 07/25/22 10:35:00 Acuity Level Acuity Level I Last Modified By: Liberty Camargo RN 07/25/22 10:30:09 Finalized By: Liberty Camargo RN Document Signatures Signed By: Liberty Camargo RN 07/25/22 10:30 Normal [facility] Main OR PACU II Recordon Main OR PACU II Record PACU Phase II Document Type FT Summary Primary Physician: Óscar Morales DO Finalized Date/Time: 07/25/22 12:32:10 Pt. Name: KAREN NAVA/Sex: 1995 Female Med Rec #: [id number] Physician: Óscar Morales DO Financial #: [id number] Pt. Type: A Room/Bed: [facility]/ Admit/Disch: 07/25/22 05:44:41 - Institution: Case Times PACU II FT Pre-Care Text: Identifies barriers to communication and implements measures to provide psychological support and determines knowledge level Develops individualized plan of care, and ensures continuity of care Maintains patient's dignity and privacy, and maintains patient confidentiality Identifies and reports philosophical, cultural, and spiritual beliefs and values Identifies individual values and wishes concerning care administers prescribed antibiotic therapy and immunizing agents as ordered, Evaluates postoperative tissue perfusion Implements thermoregulation measures, and monitors body temperature Evaluates postoperative respiratory status Evaluates postoperative cardiac status Evaluates postoperative neurological status Assesses pain control, collaborated in initiating patient-controlled analgesia and implements alternative methods of pain control Verifies allergies, administers prescribed medications and solutions, evaluates response to medications Entry 1 In PACU II 07/25/22 10:40:00 Discharge from PACU 07/25/22 12:30:00 II Outcomes Met? Yes Last Modified By: Chrissie Ag RN 07/25/22 12:32:05 Post-Care Text: The patient demonstrates knowledge of the expected response to the operative or invasive procedure The patient's care is consistent with the individualized perioperative plan of care The patient's right to privacy is maintained The patient's value system, lifestyle, ethnicity, and culture are considered, respected, and incorporated into the perioperative plan of care The patient participates in decisions affecting his or her perioperative plan of care. The patient is free from signs and symptoms of infection The patient has wound/tissue perfusion consistent with or improved from baseline levels established preoperatively The patient is at or returning to normothermia at the conclusion of the immediate postoperative period The patient's respiratory function is consistent with or improved from baseline levels established preoperatively The patient's cardiovascular status is consistent with or improved from baseline levels established preoperatively The patient's neurological status is consistent with or improved from baseline levels established preoperatively The patient demonstrates and/or reports adequate pain control throughout the perioperative period The patient received appropriate medication(s), safely administered during the perioperative period Finalized By: Chrissie Ag RN Document Signatures Signed By: Chrissie Ag RN 07/25/22 12:32 Normal [facility] Main OR Preoperative Recordo n 07-25-2022 Main OR Preoperative Record PreOp Document Type FT Summary Primary Physician: Óscar Morales DO Finalized Date/Time: 07/25/22 08:02:10 Pt. Name: KAREN NAVA/Sex: 1995 Female Med Rec #: [id number] Physician: Óscar Morales DO Financial #: [id number] Pt. Type: A Room/Bed: [place] [address] Admit/Disch: 07/25/22 05:44:41 - Institution: Case Times PreOp FT Pre-Care Text: Verifies consent for planned procedure, identifies individual values and wishes concerning care, includes family members in perioperative teaching Entry 1 Patient Times. In Pre Surgery 07/25/22 05:55:00 Out Pre Surgery 07/25/22 07:00:00 Outcomes Met? Yes Last Modified By: Karina Ordaz 07/25/22 08:02:08 Post-Care Text: The patient participates in decisions affecting his or her perioperative plan of care Finalized By: Karina Ordaz Document Signatures Signed By: Karina Ordaz 07/25/22 08:02 Normal [facility] Monitor Recordon 07-25-2022 Monitor Record [id number]. 00CD:127 Normal [facility] Operative Reporton Operative Report Patient: KAREN NAVA Age: 27 years Sex: Female : 1995 Associated Diagnoses: None Author: Óscar Morales DO DATE OF SURGERY: 07/25/2022 SURGEON: Óscar Morales D.O. MOTHERS HELPER: Melanei Bird CFA PREOPERATIVE DIAGNOSIS: Anterior and superior labral tears, AC joint sprain, right shoulder POSTOPERATIVE DIAGNOSIS: Anterior, posterior, and superior labral tears, AC joint sprain, right shoulder PROCEDURE: 1. Examination under anesthesia, right shoulder 2. Right shoulder diagnostic arthroscopy 3. Arthroscopic anterior, posterior, and superior labral repair 4. Arthroscopic biceps tenodesis 5. Arthroscopic subacromial decompression with acromioplasty 6. Arthroscopic distal clavicle excision ANESTHESIA: General + regional block ANESTHESIOLOGIST: Ajit Matson MD and Dennis Lake CRNA IMPLANTS: 1. Labral repair: Arthrex 1.8 mm knotless FiberTak anchors x 6 2. Biceps tenodesis: Arthrex 4.75 mm biocomposite SwiveLock anchor OPERATIVE INDICATIONS: Karen is a 27-year-old truiu-civo-nbhwudgx female who initially injured her right shoulder playing recreational softball. She continues to have pain that is affecting her activities of daily living, ability to sleep at night, and quality of life. She failed numerous conservative measures. She agreed to proceed with the above procedure after discussion of the risks, benefits, complications, alternatives, and expectations. Please see office notes for further details. PROCEDURE IN DETAIL: The correct operative site was identified and marked in the preoperative holding area. The patient was administered intravenous antibiotics in accordance with SCIP protocol. The patient was transported to the regional block room and administered a regional anesthetic nerve block by the anesthesiologist. I requested the regional block to assist with intraoperative and postoperative pain control. The patient was transported to the operating room, placed supine on the operating room table, and administered general anesthetic. After adequate anesthesia was obtained, the patient was placed into the beachchair position with all bony prominences well-padded. The head was secured in the padded pozo. Surgical timeout was performed with all required personnel present. The operative shoulder was examined and found to have full forward flexion, abduction, internal and external rotation. The shoulder rested in an anteriorly subluxed position, +1 instability posteriorly with qvmu-ysd-iqiwu. The operative upper extremity was prepped and draped in the usual sterile fashion. The forearm was secured in the Arthrex Trimano pneumatic arm pozo. Landmarks were demarcated. The glenohumeral joint was insufflated with 20 mL of injectable saline utilizing a spinal needle inserted posteriorly. A standard posterior portal was made. The arthroscope was introduced into the glenohumeral joint. An anterior portal in the rotator interval was made with outside-in technique using spinal needle localization. This was low in the rotator interval just above the upper border of the subscapularis. A 7 mm cannula was placed at the anterior portal. A hook probe was inserted and a diagnostic arthroscopy was carried out with the findings as noted below: 1. Superior labrum and biceps: The entire superior labrum was detached from the biceps anchor extending posteriorly. The tendon was appropriately positioned within the bicipital groove. 2. Labrum: Anterior labrum was torn from 2:00 to 5:30. The superior labral tear extended into the posterior labrum to the 8 o'clock position. Inferior labrum intact. 3. Articular surfaces: There was softening to the glenoid cartilage at the anterior inferior aspect with grooving along the inferior edge of the glenoid. No partial-thickness or full-thickness cartilage defects. No glenoid bone loss. No Hill-Sachs lesion. 4. Rotator cuff: Subscapularis, supraspinatus, infraspinatus intact. 5. The axillary recess was free of any loose bodies. The rotator interval was free of any pathology. No HAGL lesion. An anterosuperolateral portal was established with outside in technique using spinal needle localization. 7 mm cannula was placed at the ASL portal. The scope was placed into the ASL portal and a 7 mm cannula was placed at the posterior portal. The glenohumeral joint was examined once again through the ASL portal. Posterior structures were better visualized. The scope was placed back into the posterior portal and attention was turned to repair of the anterior labrum. The anterior labrum was mobilized with an elevator. A ring curette was used to remove 1 mm of cartilage from the anterior glenoid. The glenoid was further prepared with a rasp and the motorized shaver. The drill guide for the first knotless fiber tack anchor was placed at the 5:00 position on the glenoid in the prepared bed. Socket for the anchor was created with a drill and the anchor was inserted through the drill guide. The anchor was (more content not included)... [facility] Comment on above: Result Comment: Elec tronically Signed By: Óscar Morales DO\.br\Date and Time Signed: 07/25/22 18:53 EST Operative Report Patient: KAREN NAVA Age: 27 years Sex: Female : 1995 Associated Diagnoses: None Author: Ajit Matson MD Procedure Nerve Block Block Type: Supraclavicular block. Laterality: Right. Informed consent for anesthesia management: Anesthesia options discussed including nerve block, Description of the procedure, risks, benefits, and alternatives was provided, The patient's questions were addressed. Time out: Confirmed correct patient, procedure and site. Time: Date/Time 07/25/2022 07:05:00, performed by nathalie lake CRNA. Indication: Block for postoperative pain management as requested by surgeon. Anesthesia Method: IV Sedation with monitored anesthesia care, The patient remained awake and able to interact in a meaningful way throughout the procedure. Preparation: The patient was placed in the following position Sitting, Continuous pulse oximetry applied, Using maximal sterile barrier technique per current [facility] guidelines including hand hygeine, Guidance (Ultrasound used to identify anatomical landmarks, Using sterile gel and probe covers, Permanent image retained), The site was prepped with ChloraPrep. Procedure: Anesthetic Agent 20 ml ropivicaine 0.5%, Needle was inserted without pain or parasthesia in the conscious patient, Number of attempts 1, Negative attempt at aspiration for blood, Medial and lateral spread of the anesthestic was observed, Periodic negative attempts at aspiration of blood were made as the local was injected, No pain or parathesia were elicited with injection of the anesthetic in the conscious patient, It was idetified that the correct anesthetic agent was administered to the correct site. Complications: None, The patient tolerated the procedure as expected. 5 mg preservative free decadron also in block Normal [facility] Comment on above: Result Comment: Elec tronically Signed By: Dano MONGE, Ajit Torres.br\Date and Time Signed: 07/25/22 07:10 EST Outpatient Surgery Discharge Instructionon 07-25-2022 Outpatient Surgery Discharge Instruction [place] [id number] Patient Discharge Instructions PERSON INFORMATION Name: KAREN NAVA Date of : 1995 Current Date: 07/25/2022 09:53:03 PHYSICIANS Admitting Physician: Óscar Morales DO Discharge Diagnosis: KAREN NAVA has been given the following list of follow-up instructions, prescriptions, and patient education materials: IF UNABLE TO CONTACT YOUR PHYSICIAN AND YOU FEEL IT IS AN EMERGENCY, GO TO THE NEAREST EMERGENCY ROOM OR CALL 911 I, BRANDY KAREN, have received the attached patient education materials/instructions and have verbalized understanding: May we do a follow up call? Yes No I was present when discharge instructions were given Patient Signature Date Clinican/Nurse Signature ___ Date Follow up: With: Address: When: [place] [address] Business (1) Pharmacy Information: You may receive a survey from [employer] asking you to rate your care experience. Your feedback is important and will help us understand what we do well and how we can improve the quality of care we provide to you, your loved ones and our community. It?s an honor to serve you. Thank you for choosing [facility] HERE ARE THE MEDICATION CHANGES THAT OCCURRED DURING YOUR HOSPITAL STAY New Medications [id number], [address], [place] [id number], [phone] acetaminophen-oxycodon e (Percocet 5 mg-325 mg oral tablet) 1-2 tab(s) Oral q4hr. Refills: 0. docusate (Colace 100 mg Cap) 1 Capsules By Mouth 2 times a day as needed for constipation. Refills: 0. ibuprofen (ibuprofen 600 mg Tab) 1 Tablets By Mouth every 8 hours as needed as needed for pain. with food or milk. Refills: 0. Medications to Continue with No Changes Other Medications albuterol (Albuterol (Eqv-ProAir HFA)) 2 Puffs Inhalation every 6 hours. cycstic fibrosis. albuterol (albuterol 0.083% Inh Cindy 3 mL) 3 Milliliter Nebulized inhalation (aerosol) every 6 hours. cycstic fibrosis. azithromycin (Zithromax 500 mg oral tablet) 1 Tablets By Mouth every day. cystic fibrosis. budesonide (Pulmicort Flexhaler 90 mcg/inh inhalation powder) 180 Microgram Inhalation 2 times a day. cystic fibrosis. cetirizine (Zyrtec Liquid Gels 10 mg oral capsule) 1 Capsules By Mouth every day as needed for allergy symptoms. cholecalciferol (Vitamin D 1000 intl units (25 mcg) Tab) 1 Tablets By Mouth every day. dornase denise (Pulmozyme) 2.5 Milligram Nebulized inhalation (aerosol) every day. cystic fibrosis. montelukast (Singulair) 10 Milligram By Mouth every day. cystic fibrosis. multivitamin with minerals (AquADEKs oral capsule) 1 Capsules By Mouth every day. omeprazole (omeprazole 40 mg Cap-DR) 1 Capsules By Mouth every day. pancrelipase (Creon) with each meal and snack Cystic fibrosis. tobramycin 300 Milligram Nebulized inhalation (aerosol) 2 times a day. cystic fibrosis. PATIENT EDUCATION INFORMATION Instructions: [place] [place] [facility] AFTER YOUR SHOULDER ARTHROSCOPY 1. Diet: Begin with a liquid diet and advance to your normal diet as tolerated. 2. Activity: You may remove your sling for bathing and to perform gentle range of motion exercises for the hand, wrist, and elbow. Bend and straighten your elbow and wrist several times per day to minimize stiffness. Keep your elbow in close to your side when performing these exercises. Do not move your shoulder until instructed by your surgeon. Swelling after surgery is normal and this will gradually decrease over time. All sports activities are discouraged, at least until your first post-operative visit at which time we will discuss how and when to resume sports. 3. Driving: Driving is legal. If you are involved in an accident, you must be able to prove that you maintained full control of your vehicle. For this reason, it is advised that you do not drive until your strength returns. You should not operate a vehicle or heavy machinery if you are taking narcotic pain medication. 4. Pain: If pain persists despite rest, elevation, and medication, contact your surgeon. You will be given a prescription for pain medications prior to leaving the hospital. Please inform us of any known drug allergy. If you have any problems with the medication, it should be discontinued and our office notified. The sensation of splashing of fluid inside the joint is not cause for concern. It represents residual f (more content not included)... Normal [facility] Outside Recordson 07-25-2022 Outside Records [id number] 0CD:127 Normal [facility] Patient Education - Texton 0 07-25-2022 Patient Education - Text [place] [place] [facility] AFTER YOUR SHOULDER ARTHROSCOPY 1. Diet: Begin with a liquid diet and advance to your normal diet as tolerated. 2. Activity: You may remove your sling for bathing and to perform gentle range of motion exercises for the hand, wrist, and elbow. Bend and straighten your elbow and wrist several times per day to minimize stiffness. Keep your elbow in close to your side when performing these exercises. Do not move your shoulder until instructed by your surgeon. Swelling after surgery is normal and this will gradually decrease over time. All sports activities are discouraged, at least until your first post-operative visit at which time we will discuss how and when to resume sports. 3. Driving: Driving is legal. If you are involved in an accident, you must be able to prove that you maintained full control of your vehicle. For this reason, it is advised that you do not drive until your strength returns. You should not operate a vehicle or heavy machinery if you are taking narcotic pain medication. 4. Pain: If pain persists despite rest, elevation, and medication, contact your surgeon. You will be given a prescription for pain medications prior to leaving the hospital. Please inform us of any known drug allergy. If you have any problems with the medication, it should be discontinued and our office notified. The sensation of splashing of fluid inside the joint is not cause for concern. It represents residual fluids from surgery and they will be absorbed. Elevation of the arm and application of an ice pack will minimize swelling and discomfort in the first 48 hours after surgery. 5. Bandage: Soft compression dressing has been applied to your shoulder. This dressing should be comfortable and absorb any leakage of fluid or blood from your operated shoulder. Although the dressing may become moist or blood stained, this is not usually a cause for concern. If this persists, notify your surgeon. You may remove the dressing 48 hours after your surgery. If you have a bandage in your armpit, leave this in place until follow up. Apply betadine and band-aids to the small incisions once or twice daily as needed. 6. Incisions: The portals of entry may be sore and develop bruising over the next several days. The bruising eventually resolves and does not require any special care. Do not apply creams or lotions to your shoulder. Your portals will heal well on their own. 7. Bathing: You may shower 48 hours after surgery. Bathing or soaking in water should be avoided until your first post-operative visit. 8. Precautions: If you develop fever (101 degrees or above), increasing pain (not relieved by rest, elevation, ice, and medication as prescribed), redness or swelling in your shoulder or arm, please contact the office or the hospital. If you notice increased drainage from the operative portals after the third day, this should also be reported. 9. Return Visit: Your first post-operative follow-up appointment is generally between 7 and 14 days after discharge from the hospital. You will be given an appointment card with your appointment information. Do not hesitate to call the office or the hospital if any problems or questions arise before your appointment. Óscar Morales, DO [facility] [address] [place] [address] Reviewed: [facility] Progress Note-Physicianon Progress Note-Physician Patient: KAREN NAVA Age: 27 years Sex: Female : 1995 Associated Diagnoses: None Author: Ajit Matson MD Postoperative Information Postoperative disposition: Postoperative disposition: To PACU. Optimetrix number: Optimetrix number [id number]. Anesthetic utilized: General. Combined technique: Interscalene Block. Health Status Problem list: All Problems CF (cystic fibrosis) / SNOMED CT 503234639 / Confirmed Physical Examination Reviewed Results: Vital Signs(Date Range: 07/24/2022 0:00 EST - 07/25/2022 10:13 EST) Pain Assessment: Controlled. General: Awake, Alert, Appropriate. Respiratory: Adequate air exchange. Cardiovascular: Stable. Assessment Anesthetic outcome No anesthetic complications noted. Adequate pain relief. Review / Management Condition: Stable. Plan Transfer/Discharge: Transfer/Discharge Discharge when meets criteria ( From PACU to Ambulatory Surgery Unit, and To home ). Normal [facility] Comment on above: Result Comment: Elec tronically Signed By: Ajit Matson MD\.br\Date and Time Signed: 07/25/22 10:33 EST Progress Note-Physician Patient: KAREN NAVA Age: 27 years Sex: Female : 1995 Associated Diagnoses: None Author: Ajit Matson MD Preoperative Information Anesthesia Preop Info: Time patient last ate or drank 07/24/2022 21:00:00. Anesthesia history: Patient history: cystic fibrosis. Family history+: None. Informed consent: Signed by patient. Including risks, benefits, and alternatives related to the: Anesthetic plan. Re-evaluation prior to induction: Ajit Matson MD. Initial evaluation reviewed: No significant change. Review of Systems Eye: Negative. Ear/Nose/Mouth/Throat: Negative. Respiratory: Negative. Cardiovascular: Negative. Gastrointestinal: Negative. Genitourinary: Negative. Hematology/Lymphatics: Negative. Endocrine: Negative. Musculoskeletal: Negative except as documented in history of present illness. Neurologic: Negative. Health Status Allergies: Allergic Reactions (Selected) No Known Allergies, Allergies (1) Active Reaction No Known Allergies None Documented Current medications: (Selected) Inpatient Medications Ordered HYDROmorphone 1 mg/mL injectable solution: 0.2 mg = 0.2 mL, Injection, IV Push, q2min PRN Pain for 10 dose(s), Stop date Limited # of times, Routine, Start date 07/25/22 6:11:00 EST, 07/25/22 6:11:00 EST Lactated Ringers IV Cindy 1000 mL 1,000 mL: 1,000 mL, IV, 100 mL/hr, Routine, Start date 07/25/22 6:11:00 EST, 10 hour(s), Total volume (mL): 1,000, 59.8 kg, 1.59, m2 Lactated Ringers IV Cindy 1000 mL 1,000 mL: 1,000 mL, IV, 150 mL/hr, Routine, Start date 07/25/22 6:00:00 EST, 6.7 hour(s), Total volume (mL): 1,000, 59.8 kg, 1.59, m2 Phenergan 25 mg/mL Injection: 12.5 mg = 0.5 mL, Injection, IV Push, q2min PRN Other (see comment) for 2 dose(s), Stop date Limited # of times, Routine, Start date 07/25/22 6:11:00 EST, 07/25/22 6:11:00 EST cefazolin additive + Sodium Chloride 0.9% intravenous solution 50 mL: 2 gram = 1 EA, Powder-Inj, IV Piggyback, PREOP, Routine, Start date 07/25/22 6:00:00 EST, 100 mL/hr, Infuse over 30 minute(s) famotidine 10 mg/mL IV Cindy: 20 mg = 2 mL, Soln-IV, IV Push, Once, Stop date 07/25/22 6:00:00 EST, Routine, Start date 07/25/22 6:00:00 EST, 07/25/22 6:00:00 EST Documented Medications Documented Albuterol (Eqv-ProAir HFA): 2 puff(s), Inhalation, q6hr, Refill(s) 0, cycstic fibrosis, Other (see comment) AquADEKs oral capsule: 1 cap(s), Oral, Daily, 60 cap(s), Refill(s) 0, Prophylaxis Creon: See Instructions, with each meal and snack Cystic fibrosis, Refills(s) 0, Other (see comment) Pulmicort Flexhaler 90 mcg/inh inhalation powder: 180 mcg, Inhalation, BID, Refill(s) 0, cystic fibrosis, Other (see comment) Pulmozyme: 2.5 mg, NEB, Daily, cystic fibrosis, Refills(s) 0, Other (see comment) Singulair: 10 mg, Oral, Daily, cystic fibrosis, Refills(s) 0, Other (see comment) Vitamin D 1000 intl units (25 mcg) Tab: 25 mcg = 1 tab(s), Oral, Daily, Refills(s) 0, Prophylaxis Zithromax 500 mg oral tablet: 500 mg = 1 tab(s), Oral, Daily, cystic fibrosis, Refills(s) 0, Other (see comment) Zyrtec Liquid Gels 10 mg oral capsule: 10 mg = 1 cap(s), Oral, Daily, PRN for allergy symptoms, # 40 cap(s), Refills(s) 0 albuterol 0.083% Inh Cindy 3 mL: 2.5 mg, 3 mL, NEB, q6hr, Refill(s) 0, cycstic fibrosis, Other (see comment) omeprazole 40 mg Cap-DR: 40 mg = 1 cap(s), Oral, Daily, Refills(s) 0, Control of stomach acid tobramycin: 300 mg, NEB, BID, cystic fibrosis, Refills(s) 0, Other (see comment), Home Medications (12) Active Albuterol (Eqv-ProAir HFA) 2 puff(s), Inhalation, q6hr albuterol 0.083% Inh Cindy 3 mL 2.5 mg = 3 mL, NEB, q6hr AquADEKs oral capsule 1 cap(s), Oral, Daily Creon See Instructions omeprazole 40 mg Cap-DR 40 mg = 1 cap(s), Oral, Daily Pulmicort Flexhaler 90 mcg/inh inhalation powder 180 mcg, Inhalation, BID Pulmozyme 2.5 mg, NEB, Daily Singulair 10 mg, Oral, Daily tobramycin 300 mg, NEB, BID Vitamin D 1000 intl units (25 mcg) Tab 25 mcg = 1 tab(s), Oral, Daily Zithromax 500 mg oral tablet 500 mg = 1 tab(s), Oral, Daily Zyrtec Liquid Gels 10 mg oral capsule 10 mg = 1 cap(s), PRN, Oral, Daily , Medications (6) Active Scheduled: (2) ceFAZolin + Sodium Chloride 0.9% Minibag 50 mL 2 gram 1 EA, IV Piggyback, PREOP famotidine 10 mg/mL IV Cindy [F] 20 mg 2 mL, IV Push, Once Continuous: (2) Lactated Ringers 1,000 mL 1,000 mL, IV, 150 mL/hr Lactated Ringers 1,000 mL 1,000 mL, IV, 100 mL/hr PRN: (2) HYDROmorphone 1 mg/mL SOLN [F] 0.2 mg 0.2 mL, IV Push, q2min promethazine 25 mg/mL Inj [F] 12.5 mg 0.5 mL, IV Push, q2min Problem list: All Problems CF (cystic fibrosis) / SNOMED CT 935181851 / Confirmed, Active Problems (1) CF (cystic fibrosis) Histories Past Medical History: Resolved Cystic fibrosis (294738627): Resolved. Family History: No family history items have been selected or recorded. Procedure history: Myringotomy and insertion of tympanic ventilation tube ([id number]) (more content not included)... Normal [facility] Comment on above: Result Comment: Elec tronically Signed By: Dano MONGE, Ajit Torres.br\Date and Time Signed: 07/25/22 06:19 EST Consent for Procedure/Surger yon 07-24-2022 Consent for Procedure/Surgery [id number] 00CD:127 Normal [facility] Coding Summary.on 07-22-2022 Coding Summary. [id number] Gh 0bWw+PGhlYWQ+OH9XCPRtA 58ciFCbfH3WV5wJQR4STWN YEDJBVI8RWY2cmXT4RGhpF 2VybiAv BfipiTYqJL92LXq6YJN8aG akWLascT3twFIjK4u1YcZe EW53tT58TOicJLJfOzH2Qw ZpbjsgbWFy P9yqNbUbhGMgSwi+PHRhYm xlIHdpZHRoPScxMDAlJyBz oEyzVT9wHe6uQSDxXWSgoF xhcHNlOiBj g3ymTYCmOVhcWY4ieGvfV0 FhiGV9BJEyv6x0Ad31wFI+ IQTeIXD4dFakLYnpw274Ob Eoz3mzHPA9 bVZkWYyiPHV9A07yt8S7VV TqONSyTMB8iYU5yK8kiDgi oiaeA9IaaPHyLnM2RXN5cI XjdS1twGii sviaaE3fPwe+Q49IES4USU JBKQ5SRqu8Y6KgYqyfaUS+ RP61GWHhHU09eUPfjODjm3 svqOk0GtEc BVAzIRF7vEozKEkks8LaHA SvX29zoKEcw4R3JOPpwXma wXIjWeGokBR8yD3bAFkcqr eaw4nrlbic Ospzf5kbac21cM00X66kNC htAPThEQL6ARNwXCIhrGyq as6woE9eHv9+FUkzx0uhq5 zyvXv3GoJq BXVgfoXjkRfyXSW7y2VcQn 31E8NgnWdyd8AhXbn6cj80 lAJtb5B9bPI5EFciBLEygW 2pTOtkIhC5 XNBcLeAupY49aBYuTRqgQk 5clZrldArkWW8rFEJewaek DJJadJ9tJXKtdMWvnMgrGL 4wNTBpbjtm o621EoPdFNK4TCUjkSLbD0 GcuC8gReYpMHMfSSMdK2Jw pEBmAJbuL337LQzwKhW8RF YunkMiM0Mh WNWoaPjqYiO3l7P4Xl5Ia9 DgxhsfNXB7FDkmAUYkCoHa IiLuLuC1B5FgXpr7LYCbbI rsQC7cV4Fy RLClhodgjjsrtXJ9NTHbWP VjpT96fDAmAJtbVm8ht4N8 k132CCMyUSHgjT98Rj8brT ogMTBwdCBU yO5ebfwqw4exotdxJdFsVA CwSTk6KGu1JRIcvJfrNsYf FBT8ZgR4MUG6nYOvnP8rzK wvnleugC7e Oyc+D17qoQ0xHXW3CZF3yq rvQCRuotRvCJ38QI05M2Zm PjwvdGFibGU+PGRpdiBzdH jnGQ2zXuAr z5auk2FjDMsaY7BjDBPyER ttCop0ZIPlSLT8fJS7wG1y RTQdFZocy0T5zJG2F7Sqsz Idhi1vy7du UXZbHMpkD33euVUar2H9OT KorHK2MLDzjPocReHfwE15 Oyc+AKXibLhuh8ShRurwp4 xzx0tvaGg2 ReRkYGQzfeSgeQbmWBE8i6 XeMe07I11wMHhcSNBqIOYd SCNmJLXjaYvmoq2izL4vCc 8+PGNvbCB3 uQF0eC4pBTFhNvH5IWayK7 22HuIjpZWhAcine0vui2fz hDy7TrUuYNHvwqShdXqgOC H0e4AbHg10 E03yNPknPCWiAMCtNXZgJN CswNkwir4nkM8xZl4+PC9j l9vdpq55aU16lVB+PHRkIH J7tGtkQKdc MMCitT6vGUkcZfV4QXLzUk TomN28rNQpWPjeEf5awEyr rGchQR7lSBSkejevl386Te Tbo4ldYRUi dEWwNFuqZQC7J24hr4A8BQ UmTQIhACV8nHT9jK3ykRvd bjogbGVmdDsgdmVydGljYW hdKHmbP897 IHRvcDsnPlBhdGllbnQgTm QcXPj6P7HmZqv1RYKbfAzn VT9fjNYpKVmqEn0noKpxxB blKK4lYOLc hhxvk295JcCyk9huPYWziS MdKVucTUD4T43cp3S4JTXd RKKmVNQ9zJO1nA7dmQisso ogbGVmdDsg mgMcpFmbMQepSXuyA444RH RvcDsnPkJpcnRoIERhdGU6 OU82JN68iUEdt2C0fOF5B1 BhZGRpbmct jlxaqJG0ZGIfFRHarD40Bg 6ayCluJp6qTSZrUDE0NRRs yCMxH4VteV1eOfVbGRZiVT UuK9DalZRh VRthX222MYifVwQ4JBNvry XxW6ZtKUCndZocKzL7f3I5 Ts7IX4D5QR33TE75lTUtj1 G8uSW8X6Ap CZVoithqciujnHD3LAWwDP WucV82Uh6zmRltIt5lAKOe GZG5UAGexAEgN6OwiR4tAh AjMDAwMDAw B7WeqBVmWNrdD291BJqvJn Q4LXYegeOwP3WsXVQhbEjw CuY0m7E4Wa2EDOj6YF46JR 28mEOce7C6 eDE2O5BmFHXcooqgvwfnsO R3BTMzLFVgfI31Fa1liLso Pf0yEFPpKEB1VDNdeWQkX2 DgvW2qMxBz MCAoKVFpY9EmdOOnFRtkK2 58WPdhJcT3EPMvttUsU3Gs YCOohMucCsP7n6W5Re7GAY IhRP63TRG5 cUB7MD48UL62Y8QrPmmymX FibGU+PHRhYmxlIHdpZHRo HRhtSYJwOkWdeGcuKM3wUf 9yZGVyLWNv uUmyhRYgTvBsc3mpWNGxDM fvQP4qjXcyQ0TifXD2JVDe b5r5Ex78Q66hY1YmpET+PG TizHH2uOI5 cG3eXdAmOeH6KSsoW059Zc UtkYWbOpltc1gpl6rltPi7 DaZ6GEJphxYudAfxEVG5i1 CaMd97V00z IHdpZHRoPSIxNSUiIHZhbG pxbz2jnV9vOf1+PGNvbCB3 uKR3kN2wXdBkGuS9YMfcK5 49InRvcCIv Ljuxf8qph4akhPb3LdGdSX DabnAaoBzfGVF1c9AxXz32 Q3XhfMwti0EtOlj0oy75hZ Lnh3H2hJY3 A5EqYTRpqvpacPVooRhqUF 2gDBZghqllQGQsrM1pAONa R9r1MmMbHiP3MSycN6Meej M4BHJbaLCf ZMtgRXI8W40oe0L5CXZxWT FvTLL6vXN3lQ6wfDwliuok bGVmdDsgdmVydGljYWwtYW qnA629HPHr hKrzPVFtiO6zPSPqwEHeoT ddAN1fLSDephhpBpkBNE2E NcPfGRuHGm3MCVvthRC+PH BvPNJ0jQha ZQhtKWEnuX0gTGIgG0g8Pf AvSbU5SOduH4YfMYKkusvx Ow04zW4zRzCmNtW3EXrmZ7 SmokO6MHTb vVCaWOdrVQG7M52hd1A0MU HiSMSlXUU5kVU7wX6lvMwr bjogbGVmdDsgdmVydGljYW paKJwtA479 NLBcgUymQlQ2NpIzGxK0RU D1K7PtEdl1WYWjdJebBR8p dHFrEJliZk7jnEvhoYhtYY 4wNTBpbjtw NGHfpD0hCYTabVLmcZqaZH 2kHPYgonpaq123PdCtCUF9 DPSjrKTlI4UlwR2xSeNwUX XlTJPvD4Cx jIJcQSgvU513NTldEcZ0EF GoadNbS6KmJXLikFpmJwF2 v6C9Fz3bLdAHDUPogikhiJ Q+PHRkIHN0 sYdkJQtjFIQfhK8qOTKyW6 n4QqUzBpF7DCbxW8MpNUDb puldWl77lT3hBvYgLyC7PN huS6TnsoK2 TYPtnCXoEXbjTVZ3J68tu2 F1RAPxHJYwETS4uWG6fD2r bGlnbjogbGVmdDsgdmVydG ljYWwtYWxp C845NRGjvFozWrUrgRQoOA wvdGQ+QDXmUSR2dOwsFHjz BUKtsE8dCTUkB8u7VgPtGf L3HAsbY4Jp AHNekfhtDp38cU7jDsIaVi J5GRjuV2KgkaK3UCKhfVPk KAslNQP5N04rl0P8DPAaOR GgSIU4nGJ5 jW6miRuzymyheYCgfZvtgk DjrShcCTtwSXfeH698PYNq bFwqMk93vBPszWfepcT3W7 RkPjwvdHI+ HV62GUNmWW30pYHtkMYfq3 vyzWj6VuCrDVRvAZD3xDcf WOyjc6JrRABcF69ixKXpj8 B3UDPtoBqk zIVmFsXlrBH2wA5eJVtuxu lzw2wxnkptSjama0vmmu34 aN59U97yYHvtSXUbYGKzGG UiIHZhbGln ok7eqK9vOu0+QVJcqHG9kK H4bT6qTdFlHtX5DZhpQ694 QkPxmUMrFavgj2xzu5vczG j3TkLhDJQr khFlrXpgHFG1g2QqXb51M4 9sIHdpZHRoPSIyMCUiIHZh pMobqr3hzT7aDm3+PC9jb2 pkku95eP12 dHI+ERIxNNU4tBsgTLvtGK HhwE3vHKcsNhT0SQHvWiRy vQ89pVEhVLusRx0ebKrfyI ctWD8dWUDm iyztr234XuUjr7rsSFIidW IyBNycWEW7I89eb6G7STWh YSIvBJH4tXI7wT8hyEqskl ogbGVmdDsg ylDauFuaDXqaYNuhV905ME CgzVsmGxFlaKKaW8snkjZK LV0eFxwlxOG+LWCoDNG4uY xlPSdwYWRk uJ3aCMUpM4a5NlLyRjL1MB ktY3FqxuZ6EOWrwYXvFHKx mUFVrL3lfzhfp1gkauciSj AwMDAwMDt0 WKf3FORvuWnmQuKoTLJ9Gm X1EMH7jWEptX5apGdtpgre qU2nDme+RklOOjwvdGQ+PH WpRZU5sJgm BButDKCrhC2nGAWwB2y7Fz DfKwH1CIptR8DmfjH8PVIp nYUfGVOxpALOyQ3abnkhz4 xvcjogIzAw CHXgULx9WHd1ZSEfkTgsDx JbYKE4LfB4LRT7iGGueH3v zVllisaubD7oSnt+TVJOOj wvdGQ+PHRk MIX0bPgtIDhzCMPniU8jSY EpO8d5AnOrFvI1PNlrY8Rv snT0XEFqqPAnFKZtyELGdQ 4ylmrvh8tb ymavFyJnCIGqORm0KSo2YW JvqXpoZlFzCBX1OzZ9SYU4 mTLfnD8ftHjrlndiaE9tHa c+NAM5OGG3 YS75FI61Q2YpWziroJRgvO U+PHRhYmxlIHdpZHRoPScx FGVqUaWjmKzpQB5eWm8gDR VyLWNvbGxh cHNl (more content not included)... Normal [facility] Outside Recordson 07-22-2022 Outside Records [id number]#[id number] 0CD:127 Normal [facility] CBC w/Indiceson 07-17-2022 Erythrocyte distribution width (RBC) [Ratio] 13.5 % Normal 10.9-14.2 [facility] Comment on above: Performed By: #### 2 [id number] #### [facility] [address] [place] [address] Hematocrit (Bld) [Volume fraction] 39.1 % Normal 34.0-46.0 [facility] Comment on above: Performed By: #### 2 [id number] #### [facility] [address] [place] [address] Hemoglobin (Bld) [Mass/Vol] 12.7 g/dL Normal 12.0-16.0 [facility] Comment on above: Performed By: #### 2 [id number] #### [facility] [address] [place] [address] MCH (RBC) [Entitic mass] 28.8 pg Normal 27.0-34.0 [facility] Comment on above: Performed By: #### 2 [id number] #### [facility] [address] [place] [address] MCHC (RBC) [Mass/Vol] 32.6 g/dL Normal 31.4-36.0 [facility] Comment on above: Performed By: #### 2 [id number] #### [facility] [address] [place] [address] MCV (RBC) [Entitic vol] 88.4 fL Normal 80.0-100.0 [facility] Comment on above: Performed By: #### 2 [id number] #### [facility] [address] [place] [address] Platelet mean volume (Bld) [Entitic vol] 7.9 fL Normal 6.4-10.8 [facility] Comment on above: Performed By: #### 2 [id number] #### [facility] [address] [place] [address] Platelets (Bld) [#/Vol] 356.0 E9/L Normal 150.0-500.0 [facility] Comment on above: Performed By: #### 2 [id number] #### [facility] [address] [place] [address] RBC (Bld) [#/Vol] 4.4 E12/L Normal 4.3-5.9 [facility] Comment on above: Performed By: #### 2 [id number] #### [facility] [address] [place] [address] WBC corrected for nucl RBC Auto (Bld) [#/Vol] 13.8 E9/L High 4.0-11.0 [facility] Comment on above: Performed By: #### 2 [id number] #### [facility] [address] [place] [address] COVID-19 ([facility])on 07-17-2022 Performing Instrument FT Ruben 2 Normal Fis [facility] Comment on above: Performed By: #### 2 [id number] ####[id number] [place] [address] SARS-CoV-2 (COVID-19) RNA MARTHA+probe Ql (Resp) Not detected Normal Not Detected [facility] Comment on above: Result Comment: This test result should be correlated with clinical presentations and medical history by a healthcare provider to determine its clinical significance. This assay was performed by a reverse transcriptase real-time polymerase chain reaction (rt PCR) method on the [employer] system. This test has been authorized only for the detection of nucleic acid from SARS-CoV-2, not for any other viruses or pathogens. This test has not been FDA cleared or approved. This test has been authorized by FDA under an Emergency Use Authorization (EUA). This test is only authorized for the duration of time the declaration on that circumstances exist justifying the authorization emergency use of in vitro diagnostic tests for detection and/or diagnosis of COVID-19 infection under section 564 (b) (1) of the Act, 21 U.S.C. 360 bbb-3 (b) (1), unless authorization is terminated or revoked sooner. Performed By: #### 2 [id number] ####[id number] [place] [address] SARS-CoV-2 (COVID-19) RNA MARTHA+probe Ql (Unsp spec) Pass Normal Pass [facility] Comment on above: Performed By: #### 2 [id number] ####[id number] [place] [address] Specimen source Nom (Unsp spec) Nasal Normal [facility] Comment on above: Performed By: #### 2 [id number] ####[address] [place] [address] Consent for Treatmenton 06-23 Consent for Treatment [id number]. 00CD:127 Normal [facility] Consent for Treatment [id number]#1.0 0CD:127 Normal [facility] HEMATOLOGYOrdered By: Brandi Blair on 07-17-2022 Erythrocyte distribution width (RBC) [Ratio] 13.5 % Normal 10.9 - 14.2 % [facility] Hematocrit (Bld) [Volume fraction] 39.1 % Normal 34.0 - 46.0 % [facility] Hemoglobin (Bld) [Mass/Vol] 12.7 g/dL Normal 12.0 - 16.0 gm/dL [facility] MCH (RBC) [Entitic mass] 28.8 pg Normal 27.0 - 34.0 pg [facility] MCHC (RBC) [Mass/Vol] 32.6 g/dL Normal 31.4 - 36.0 gm/dL [facility] MCV (RBC) [Entitic vol] 88.4 fL Normal 80.0 - 100.0 fL [facility] Platelet mean volume (Bld) [Entitic vol] 7.9 fL Normal 6.4 - 10.8 fL [facility] Platelets (Bld) [#/Vol] 356.0 E9/L Normal 150.0 - 500.0 E9/L [facility] RBC (Bld) [#/Vol] 4.4 E12/L Normal 4.3 - 5.9 E12/L [facility] WBC corrected for nucl RBC Auto (Bld) [#/Vol] 13.8 E9/L High 4.0 - 11.0 E9/L [facility] SEROLOGYOrdered By: Cony Wakefield on 07-17-2022 HCG.beta subunit (U) [Moles/Vol] Negative Normal [facility] Man Sero U BetaHcg [place] 07-17-2022 HCG.beta subunit (U) [Moles/Vol] Negative Normal [facility] Comment on above: Performed By: #### 2 [id number] #### [facility] [address] [id number] XR Chest 2 Viewson 3 XR Chest 2 Views Exam Date/Time: 07/17/2022 15:52 EST Reason for Exam: PRE OP Report IMPRESSION: Upper lung zone changes probably due to chronic bronchiectatic changes in this patient with a history of cystic fibrosis. Clinical correlation recommended EXAM: XR Chest 2 Views CLINICAL HISTORY: Shortness of breath PRE OP COMPARISONS: None FINDINGS: Patchy opacities right upper lobe greater than left with slightly tubular branching pattern suggestive of bronchiectatic change. There are no previous chest radiographs for comparison our review of a right shoulder radiograph from 04/10/2022 shows some increased markings in the right upper lung zone that favor probable chronic pattern. Mid and lower lung zones clear. Heart and mediastinum within normal limits. FINAL REPORT Dictated: 07/17/2022 4:16 pm Corby Lopez MD Signed (Electronic Signature): 07/17/2022 4:16 pm Signed by: Corby Lopez MD Transcribed by: JESSI Technologist: GEOVANNI Altamirano [facility] COVID-19 ([facility]on 07-16-2022 ADMITTED TO INTENSIVE CARE UNIT FOR CONDITION OF INTEREST:FIND:PT: Unknown Normal [facility] Comment on above: Performed By: #### 2 [id number] ####[facility] [id number] [place] [address] EMPLOYED IN A HEALTHCARE SETTING:FIND:PT: Unknown Normal [facility] Comment on above: Performed By: #### 2 [id number] ####[facility] [address] [place] [address] FIRST TEST FOR CONDITION OF INTEREST:FIND:PT: Unknown Normal [facility] Comment on above: Performed By: #### 2 [id number] ####[place] [address] HAS SYMPTOMS RELATED TO CONDITION OF INTEREST:FIND:PT: Unknown Normal [facility] Comment on above: Performed By: #### 2 [id number] ####[place] [address] HOSPITALIZED FOR CONDITION OF INTEREST:FIND:PT: Unknown Normal [facility] Comment on above: Performed By: #### 2 [id number] ####[facility] [address] [place] [id number] STATUS:FIND:PT: Unknown Normal [facility] Comment on above: Performed By: #### 2 [id number] ####[place] [id number] [place] [id number] RESIDES IN A [facility] CARE SETTING:FIND:PT: Unknown Normal [facility] Comment on above: Performed By: #### 2 [id number] ####[facility] [address] [place] [address] Physician Orderon 06-30-2022 Physician Order [id number] 0CD:127 Normal [facility] Physician Orderon 06-27-2022 Physician Order [id number]#1.0 0CD:127 Normal [facility] HCG ( test) IA.rapi d Ql (U)Ordered By: Jc Parrish on 03-10-2022 HCG ( test) Ql (U) Negative [facility] COVID-19 Positive/NegativeOr dered By: Michael Campbell on 03-06-2022 SARS-CoV-2 (COVID-19) N gene MARTHA+probe Ql (Resp) Negative Negative [facility] Comment on above: Testing for SARS-CoV -2 by RT-PCR This test was developed and its performance characteristics determined by [employer] ([employer]) and validated at the [facility]. This test has not been FDA cleared or approved. This test has been authorized by FDA under an Emergency Use Authorization (EUA). This test has been validated in accordance with the FDA's Guidance Document (Policy for Diagnostics Testing in Laboratories Certified to Perform High Complexity Testing under CLIA prior to Emergency Use Authorization for Coronavirus Disease-2019 during the Public Health Emergency) issued on September 22, 2019. This test is only authorized for the duration of time the declaration that circumstances exist justifying the authorization of the emergency use of in vitro diagnostic tests for detection of SARS-CoV-2 virus and/or diagnosis of COVID-19 infection under section 564(b)(1) of the Act, 21 U.S.C. 360bbb-3(b)(1), unless the authorization is terminated or revoked sooner. Testing for SARS-CoV -2 by RT-PCRThis test was developed and its performance characteristics determined by [employer] ([employer]) and validated at the [facility]. This test has not been FDA cleared or approved. This test has been authorized by FDA under an Emergency Use Authorization (EUA). This test has been validated in accordance with the FDA's Guidance Document (Policy for Diagnostics Testing in Laboratories Certified to Perform High Complexity Testing under CLIA prior to Emergency Use Authorization for Coronavirus Disease-2019 during the Public Health Emergency) issued on September 22, 2019. This test is only authorized for the duration of time the declaration that circumstances exist justifying the authorization of the emergency use of in vitro diagnostic tests for detection of SARS-CoV-2 virus and/or diagnosis of COVID-19 infection under section 564(b)(1) of the Act, 21 U.S.C. 360bbb-3(b)(1), unless the authorization is terminated or revoked sooner. CBC AUTO DIFFon 01-10-2020 Basophils (Bld) [#/Vol] 0.1 103/ul Normal 0.0-0.1 [facility] Comment on above: Performed By: #### C BC #### [facility] [address], [place] [address] Lemuel Eboni Basophils/100 WBC (Bld) 0.5 % Normal 0.2-2.0 [facility] Comment on above: Performed By: #### C BC #### [facility] [address], [place] [address] Lemuel Eboni Eosinophils (Bld) [#/Vol] 0.4 103/ul Normal 0.0-0.7 [facility] Comment on above: Performed By: #### C BC #### [facility] [address], [place] [address] Lemuel Eboni Eosinophils/100 WBC (Bld) 3.0 % Normal 0.9-7.0 [facility] Comment on above: Performed By: #### C BC #### [facility] [address] [place] [address] Lemuel Eboni Erythrocyte distribution width (RBC) [Ratio] 12.5 % Normal 11.0-15.0 [facility] Comment on above: Performed By: #### C BC #### [facility] [address] [place] [address] Lemuel Eboni Hematocrit (Bld) [Volume fraction] 39.8 % Normal 36.0-48.0 [facility] Comment on above: Performed By: #### C BC #### [facility] [address] [place] [address] Lemuel Eboni Hemoglobin (Bld) [Mass/Vol] 12.8 g/dL Normal 12.0-16.0 [facility] Comment on above: Performed By: #### C BC #### [facility] [address] [place] [address] Lemuel Eboni IG # 0.03 10e3/ul Normal 0.00-0.03 [facility] Comment on above: Performed By: #### C BC #### [facility] [address] [place] [address] Lemuel Eboni IG % 0.3 % Normal 0.0-0.5 [facility] Comment on above: Performed By: #### C BC #### [facility] [address] [place] [address] Lemuel Eboni Lymphocytes (Bld) [#/Vol] 2.8 103/ul Normal 1.2-3.8 [facility] Comment on above: Performed By: #### C BC #### [facility] [address] [place], [place] [id number] Lemuel Eboni Lymphocytes/100 WBC (Bld) 23.3 % Normal 20.5-60.0 [facility] Comment on above: Performed By: #### C BC #### [facility] [address] [place], [place] [id number] Lemuelpresley Rainen MANUAL DIFF REQ NO Normal [facility] Comment on above: Performed By: #### C BC #### [facility] [address], [place] [address] Lemuelpresley Lyn MCH (RBC) [Entitic mass] 30.7 pg Normal 26.7-34.0 [facility] Comment on above: Performed By: #### C BC #### [facility] [address], [place] [address] Lemuelpresley Lyn MCHC (RBC) [Mass/Vol] 32.2 g/dL Normal 29.9-35.2 [facility] Comment on above: Performed By: #### C BC #### [facility] [address], [place] [address] Lemuel Eboni MCV (RBC) [Entitic vol] 95.4 fL Normal 81.0-99.0 [facility] Comment on above: Performed By: #### C BC #### [facility] [address] [place] [address] Lemuel Eboni Monocytes (Bld) [#/Vol] 0.9 103/ul Critically high 0.3-0.8 [facility] Comment on above: Performed By: #### C BC #### [facility] [address] [place] [address] Lemuel Eboni Monocytes/100 WBC (Bld) 7.8 % Normal 1.7-12.0 [facility] Comment on above: Performed By: #### C BC #### [facility] [address] [place] [address] Lemuel Eboni Neutrophils (Bld) [#/Vol] 7.8 103/ul Critically high 1.4-6.5 [facility] Comment on above: Performed By: #### C BC #### [facility] [address] [place] [address] Lemuel Eboni Neutrophils/100 WBC (Bld) 65.1 % Normal 43.0-75.0 [facility] Comment on above: Performed By: #### C BC #### [facility] [address], [place] [address] Lemuel Eboni Platelet mean volume (Bld) [Entitic vol] 9.4 fL Critically low 9.5-13.5 [facility] Comment on above: Performed By: #### C BC #### [facility] [address], [place] [address] Lemuel Lyn Platelets (Bld) [#/Vol] 286 103/ul Normal 150-450 [facility] Comment on above: Performed By: #### C BC #### [facility] [address] [place], [place] [id number] Lemuel Lyn RBC (Bld) [#/Vol] 4.17 106/ul Critically low 4.20-5.40 [facility] Comment on above: Performed By: #### C BC #### [facility] [address] [place], [place] [id number] Lemuel Lyn WBC (Bld) [#/Vol] 12.0 103/ul Critically high 4.0-11.0 [facility] Comment on above: Performed By: #### C BC #### [facility] [address] [place] [address] ABD/PELVIS WO CONon 01-09 CT ABD/PELVIS WO CON EXAMINATION: CT ABD/PELVIS WO CON HISTORY: Acute right posterior upper quadrant pain. History of frequent UTIs and kidney infections. History of cystic fibrosis. COMPARISON: None. TECHNIQUE: CT examination of the abdomen and pelvis without IV contrast. Coronal and sagittal reformations were performed. Dose reduction techniques were achieved by using automated exposure control and/or adjustment of mA and/or kV according to patient size and/or use of iterative reconstruction technique. FINDINGS: The lung bases are clear. Lower mediastinal structures are normal. The liver, spleen, adrenal glands, pancreas, gallbladder show normal unenhanced characteristics. The kidneys are symmetric in size and show no calcifications or hydronephrosis. No stones are seen in the ureters. The aorta has a normal course and caliber. The large and small bowel are normal caliber. There is a large amount of stool throughout the colon. There are surgical changes of appendectomy. Pelvic organs are grossly normal. A large cyst is seen in the right ovary. This measures approximately 3.7 cm in diameter. The urinary bladder is normal. There is no free air or free fluid and no inflammatory stranding is seen. Osseous structures are normal. IMPRESSION: Unremarkable evaluation of the urinary tract system. No abnormality is seen to clearly account for the symptoms within the limitations of a noncontrast exam. Constipation, with a large amount of stool throughout the colon. Right ovarian cyst. Electronically authenticated by: KAREN RG Date: 2020-01-10 16:56 Normal The [facility] CULTURE URINEon 01-10-2020 CULTURE URINE Culture Observations : No growth Normal [facility] Comment on above: Performed By: #### U RCX #### [facility] [address] [place] [address] Lemuel Eboni ER URINE PROFILEon 0 Bilirubin [Mass/Vol] Negative Normal NEGATIVE [facility] Comment on above: Performed By: #### DEBBIE CARVER #### [facility] [address] [place] [address] Lemuel Eboni BLOOD Negative Normal NEGATIVE [facility] Comment on above: Performed By: #### DEBBIE CARVER #### [facility] [address] [place] [address] Lemuel Eboni Clarity (U) CLEAR Normal [facility] Comment on above: Performed By: #### DEBBIE CARVER #### [facility] [address] [place] [address] Lemuel Eboni Color (U) LT. YELLOW Normal YELLOW [facility] Comment on above: Performed By: #### DEBBIE CARVER #### [facility] [address] [place] [address] Lemuel Eboni ERUAHD A micrscopic examination will be performed if indicated. Normal [facility] Comment on above: Performed By: #### BUFFY CARVERRO #### [facility] [address] [place] [address] Lemuel Eboni Glucose [Mass/Vol] Negative Normal NEGATIVE [facility] Comment on above: Performed By: #### DEBBIE CARVER #### [facility] [address] [place] [address] Lemuel Eboni Ketones Ql (U) Negative Normal NEGATIVE [facility] Comment on above: Performed By: #### DEBBIE CARVER #### [facility] [address] [place], [place] [id number] Lemuel Eboni Nitrite Ql (U) Negative Normal NEGATIVE [facility] Comment on above: Performed By: #### DEBBIE CARVER #### [facility] [address] [place], [place] [id number] Lemuel Eboni pH (Bld) 6.0 Normal 5-9 [facility] Comment on above: Performed By: #### DEBBIE CARVER #### [facility] [address] [place] [address] Lemuel Eboni Protein (U) [Mass/Vol] Negative Normal [facility] Comment on above: Performed By: #### DEBBIE CARVER #### [facility] [address] [place] [address] Lemuel Eboni SPEC GRAVITY <=1.005 Normal 1.005-<=1.02 5 [facility] Comment on above: Performed By: #### DEBBIE CARVER #### [facility] [address] [place] [address] Lemuel Eboni UR MICRO IND INDICATED Normal [facility] Comment on above: Performed By: #### DEBBIE CARVER #### [facility] [address] [place] [address] Lemuel Eboni Urobilinogen Qn (U) 0.2 EU/dl Normal [facility] Comment on above: Performed By: #### DEBBIE CARVER #### [facility] [address] [place] [address] Lemuel Eboni WBC (Bld) [#/Vol] SMALL Normal NEGATIVE [facility] Comment on above: Performed By: #### DEBBIE CARVER #### [facility] [address] [place], [place] [id number] Lemuel Eboni PREG HCG QUALon 01-10-2020 , QUAL Negative Normal NEGATIVE [facility] Comment on above: Performed By: #### P REG #### [facility] [address] [place] [address] Lemuel Eboni PROF 14(COMP METB)on 020 Albumin [Mass/Vol] 3.7 g/dL Normal 3.5-5.0 [facility] Comment on above: Performed By: #### C MP #### [facility] [address] [place], [place] [id number] Lemuel Eboni Albumin/Globulin [Mass ratio] 1.2 {ratio} Normal [facility] Comment on above: Performed By: #### C MP #### [facility] [address] [place] [address] Lemuel Eboni ALP [Catalytic activity/Vol] 93 U/L Normal 38-126 [facility] Comment on above: Performed By: #### C MP #### [facility] [address] [place] [address] Lemuel Eboni ALT [Catalytic activity/Vol] 20 U/L Normal 9-52 [facility] Comment on above: Performed By: #### C MP #### [facility] [address] [place] [address] Lemuel Eboni Anion gap [Moles/Vol] 6.8 mmol/L Normal [facility] Comment on above: Performed By: #### C MP #### [facility] [address] [place] [address] Lemuel Eboni AST [Catalytic activity/Vol] 16 U/L Normal 14-36 [facility] Comment on above: Performed By: #### C MP #### [facility] [address] [place] [address] Lemuel Eboni Bilirubin Ql (U) 0.6 mg/dL Normal 0.2-1.3 [facility] Comment on above: Performed By: #### C MP #### [facility] [address] [place], [place] [id number] Lemuel Eboni Calcium [Mass/Vol] 8.4 mg/dL Normal 8.4-10.2 [facility] Comment on above: Performed By: #### C MP #### [facility] [address] [place] [address] Lemuel Eboni Chloride [Moles/Vol] 103 mmol/L Normal 98-107 [facility] Comment on above: Performed By: #### C MP #### [facility] [address] [place] [id number] Lemuel Eboni CO2 [Moles/Vol] 30.0 mmol/L Normal 22.0-30.0 [facility] Comment on above: Performed By: #### C MP #### [facility] [address] [place] [id number] Lemuel Eboni Creatinine [Mass/Vol] 1.03 mg/dL Normal 0.52-1.04 [facility] Comment on above: Performed By: #### C MP #### [facility] [address] [place] [id number] Lemuel Eboni EGFR-AF PAKISTANI >60 Normal >=60 [facility] Comment on above: Performed By: #### C MP #### [facility] [address] [place] [address] Lemuel Eboni EGFR-NON AF PAKISTANI >60 Normal >=60 [facility] Comment on above: Performed By: #### C MP #### [facility] [address] [place], [place] [id number] Lemuel Eboni Globulin (S) [Mass/Vol] 3.2 g/dL Normal [facility] Comment on above: Performed By: #### C MP #### [facility] [address] [place], [place] [id number] Lemuel Eboni Glucose [Mass/Vol] 127 mg/dL Critically high 74-106 [facility] Comment on above: Performed By: #### C MP #### [facility] [address] [place], [place] [id number] Lemuel Eboni Potassium [Moles/Vol] 3.8 mmol/L Normal 3.4-5.0 [facility] Comment on above: Performed By: #### C MP #### [facility] [address] [place], [place] [id number] Lemuel Beoni Protein [Mass/Vol] 6.9 g/dL Normal 6.1-8.2 [facility] Comment on above: Performed By: #### C MP #### [facility] [address] [place] [id number] Lemuel Eboni Sodium [Moles/Vol] 136 mmol/L Critically low 137-145 [facility] Comment on above: Performed By: #### C MP #### [facility] [address] [place], [place] [id number] Lemuel Eboni Urea nitrogen [Mass/Vol] 7.0 mg/dL Normal 7.0-17.0 [facility] Comment on above: Performed By: #### C MP #### [facility] [address] [place], [place] [id number] Lemuel Eboni Urea nitrogen/Creatinine [Mass ratio] 6.8 mg/mg Normal [facility] Comment on above: Performed By: #### C MP #### [facility] [address] [place], [place] [id number] Lemuel Eboni URINE MICROSCOPIC ONLYon Bacteria LM.HPF (Urine sed) [#/Area] NONE SEEN Normal NONE SEEN The [facility] Comment on above: Performed By: #### BUFFY CARVERRO #### [facility] [address] [place], [place] [id number] Lemuel Eboni CAST NONE SEEN Normal NONE SEEN The [facility] Comment on above: Performed By: #### BUFFY CARVERRO #### [facility] [address] [place], [place] [id number] Lemuel Eboni Crystals LM Nom (Urine sed) NONE SEEN Normal NONE SEEN The [facility] Comment on above: Performed By: #### BUFFY CARVERRO #### [facility] [address] [place] [address] Lemuel Eboni CULTURE INDICATED Normal [facility] Comment on above: Performed By: #### BUFFY CARVERRO #### [facility] [address] [place], [place] [id number] Lemuel Eboni Epithelial cells LM.HPF (Urine sed) [#/Area] RARE Normal [facility] Comment on above: Performed By: #### Deniz NICOLE UMALEJANDRARO #### [facility] [address] [place], [place] [id number] Lemuel Eboni MUCOUS NONE SEEN Normal NONE SEEN The [facility] Comment on above: Performed By: #### E RUR, UMICRO #### [facility] [address], [place] [address] eLmuel Lyn RBC (U) [#/Vol] NONE SEEN Normal 0-2 [facility] Comment on above: Performed By: #### E RUR, UMICRO #### [facility] [address], [place] [address] Lemuel Lyn WBC (Bld) [#/Vol] 0-2 Normal NONE SEEN The [facility] Comment on above: Performed By: #### E RUR, UMICRO #### [facility] [address], [place] [address] Lemuel Lyn XR CHEST STANDARD TWO VWon 1 XR CHEST STANDARD TWO VW FINAL REPORTEXAM: XR CHEST STANDARD TWO VWHISTORY: Chest Pain, cough TECHNIQUE: PA and lateral views of the chest were obtained.PRIORS: 28 November 2016.FINDINGS: There is focal patchy airspace disease of the peripheral right upper lobe. No large pleural effusion. No pneumothorax. Cardiac silhouette and mediastinal structures are unremarkable. No acute osseous abnormality identified. IMPRESSION: Impression: Right upper lobe pneumonia. Interpreted by:Karen Maldonado, DOSigned by:Karen Maldonado, DO04/13/17Final result Normal [facility] Vital Signs Date Time Vital Sign Value Performing Clinician Facility 10-26-2022 14:040 Body height 152.4 cm Jeanette Natarajan MD Work Phone: [facility] 10-26-2022 14:06040 Body mass index (BMI) [Ratio] 23.44 kg/m2 Jeanette Natarajan MD Work Phone: [facility] 10-26-2022 14:06040 Body temperature 97.7 [degF] Jeanette Natarajan MD Work Phone: [facility] 10-26-2022 14:06040 Body weight 54.43 kg Jeanette Natarajan MD Work Phone: [facility] 10-26-2022 14:06-0400 Diastolic blood pressure 70 mm[Hg] Jeanette Natarajan MD Work Phone: [facility] 10-26-2022 14:06-0400 Heart rate 82 /min Jeanette Natarajan MD Work Phone: [facility] 10-26-2022 14:06-0400 Respiratory rate 16 /min Jeanette Natarajan MD Work Phone: [facility] 10-26-2022 14:06-0400 SaO2% (BldA) [Mass fraction] 96 % Jeanette Natarajan MD Work Phone: [facility] 10-26-2022 14:06-0400 Systolic blood pressure 102 mm[Hg] Jeanette Natarajan MD Work Phone: [facility] 07-25-2022 12:13-0500 Blood Pressure Location Óscar [employer] [facility] 07-25-2022 12:13-0500 Diastolic blood pressure 72 mm[Hg] Óscar [employer] [facility] 07-25-2022 12:13-0500 Heart rate 97 /min Óscar [employer] [facility] 07-25-2022 12:13-0500 Mean blood pressure 85 mm[Hg] Óscar Morales [facility] 07-25-2022 12:13-0500 Respiratory rate 18 /min Óscar Morales [facility] 07-25-2022 12:13-0500 SaO2% (BldA) [Mass fraction] 97 % Óscar [employer] [facility] 07-25-2022 12:13-0500 Systolic blood pressure 110 mm[Hg] Óscar Morales [facility] 07-25-2022 11:46-0500 Respiratory rate 16 /min Óscar Morales [facility] 07-25-2022 11:40-0500 Heart rate 74 /min Óscar Morales [facility] 07-25-2022 11:40-0500 Respiratory rate 16 /min Óscar Morales [facility] 07-25-2022 10:39-0500 Heart rate 72 /min Óscar Morales [facility] 07-25-2022 10:39-0500 SaO2% (BldA) [Mass fraction] 96 % Óscar Morales [facility] 07-25-2022 10:37-0500 Body temperature 97.52 [degF] Óscar Morales [facility] 07-25-2022 10:37-0500 Diastolic blood pressure 69 mm[Hg] Óscar Morales [facility] 07-25-2022 10:37-0500 Mean blood pressure 82 mm[Hg] Óscar Brown [facility] 07-25-2022 10:37-0500 Systolic blood pressure 108 mm[Hg] Óscra Brown [facility] 07-25-2022 10:30-0500 Blood Pressure Location Óscar Morales [facility] 07-25-2022 10:30-0500 Body temperature 97.88 [degF] Óscar Morales [facility] 07-25-2022 10:30-0500 Diastolic blood pressure 68 mm[Hg] Óscar Brown [facility] 07-25-2022 10:30-0500 Mean blood pressure 81 mm[Hg] Óscar Brown [facility] 07-25-2022 10:30-0500 Respiratory rate 15 /min Óscar Morales [facility] 07-25-2022 10:30-0500 SaO2% (BldA) [Mass fraction] 95 % Óscar Morales [facility] 07-25-2022 10:30-0500 Systolic blood pressure 106 mm[Hg] Óscar Morales [facility] 07-25-2022 10:20-0500 Blood Pressure Location Óscar Morales [facility] 07-25-2022 10:20-0500 Mean blood pressure 86 mm[Hg] Óscar Morales [facility] 07-25-2022 10:20-0500 Respiratory rate 16 /min Óscar Morales [facility] 07-25-2022 10:15-0500 Respiratory rate 19 /min Óscar Morales [facility] 07-25-2022 10:05-0500 Body temperature 97.34 [degF] Óscar Morales [facility] 07-25-2022 06:31-0500 Heart rate 72 /min Óscar Morales [facility] 07-25-2022 06:04-0500 Mean blood pressure 79 mm[Hg] Óscar Morales [facility] 07-25-2022 06:03-0500 Mean blood pressure 82 mm[Hg] Óscar Morales [facility] 07-17-2022 15:34-0500 Body temperature 98.6 [degF] Óscar Morales [facility] 07-17-2022 15:34-0500 Diastolic blood pressure 79 mm[Hg] Óscar Morales [facility] 07-17-2022 15:34-0500 Heart rate 79 /min Óscar Morales [facility] 07-17-2022 15:34-0500 Mean blood pressure 91 mm[Hg] Óscar Morales [facility] 07-17-2022 15:34-0500 Systolic blood pressure 116 mm[Hg] Óscar Morales [facility] 07-17-2022 15:33-0500 Heart rate 76 /min Óscar Morales [facility] 07-17-2022 15:33-0500 SaO2% (BldA) [Mass fraction] 99 % Óscar Morales [facility] 07-17-2022 15:33-0500 Diastolic blood pressure 67 mm[Hg] Óscar Morales [facility] 07-17-2022 15:33-0500 Mean blood pressure 76 mm[Hg] Óscar Morales [facility] 07-17-2022 15:33-0500 Systolic blood pressure 94 mm[Hg] Óscar Morales [facility] 07-17-2022 15:32-0500 Respiratory rate 16 /min Óscar Morales [facility] 03-10-2022 14:07-0400 Diastolic blood pressure 58 mm[Hg] DO Michael Curtfay Work Phone: [facility] 03-10-2022 14:07-0400 Heart rate 75 /min DO Michael Laffay Work Phone: [facility] 03-10-2022 14:07-0400 Respiratory rate 16 /min DO Michael Laffay Work Phone: [facility] 03-10-2022 14:07-0400 SaO2% (BldA) [Mass fraction] 96 % DO Michael Laffay Work Phone: [facility] 03-10-2022 14:07-0400 Systolic blood pressure 91 mm[Hg] DO Michael Campbell Work Phone: [facility] 03-10-2022 13:37-0400 Inhaled oxygen flow rate 8 L/min DO Michael Campbell Work Phone: [facility] 03-10-2022 11:23-0400 Body mass index (BMI) [Ratio] 23.8 kg/m2 DO Michael Campbell Work Phone: [facility] 03-10-2022 11:22-0400 Body height 152.4 cm DO Michael Campbell Work Phone: [facility] 03-10-2022 11:22-0400 Body weight 55.33 kg DO Michael Campbell Work Phone: [facility] 03-10-2022 09:48-0400 Body temperature 97.5 [degF] DO Michael Campbell Work Phone: [facility] Encounters Encounter Date Encounter Type Care Provider Facility Start: 06-02-2024 End: 06-02-2024 Telephone encounter Kimberly [facility] Start: 05-31-2024 End: 05-31-2024 ambulatory Jeanette [facility] Facility:[facility] Start: 05-03-2024 End: 05-03-2024 Telephone encounter Ariam [facility]OMARES [facility] Start: 01-18-2024 End: 01-18-2024 Telephone encounter Airam PALOMARES [facility] Start: 09-03-2023 Telephone encounter Amanda vanessa CMA [facility] Start: 08-13-2023 [facility] Start: 10-26-2022 End: 10-26-2022 Emergency department patient visit JEANETTE NATARAJAN [facility] Start: 10-26-2022 End: 10-26-2022 Emergency department patient visit Jeanette Natarajan MD Work Phone: [facility] Comment on above: Concussion with loss of consciousness of 30 minutes or less, initial encounter (Primary Dx); Vertigo Start: 10-26-2022 End: 10-26-2022 Evaluation and management of inpatient Jeanette Natarajan MD Work Phone: [facility] Start: 10-25-2022 End: 10-25-2022 Emergency department patient visit JEREMY HERNANDEZ [facility] Start: 07-25-2022 End: 07-25-2022 ambulatory Óscar Morales Facility:[facility] Start: 07-25-2022 End: 07-25-2022 Admission to same day surgery center Óscar Morales [facility] Start: 07-17-2022 End: 07-18-2022 ambulatory Óscar Morales Facility:[facility] Start: 07-17-2022 End: 07-17-2022 Patient encounter procedure Óscar Morales [facility] Start: 03-26-2022 End: 03-26-2022 ambulatory Services [facility] Work Phone: [facility] Work Phone: Start: 03-26-2022 End: 03-26-2022 Patient encounter procedure Services [facility] Work Phone: [facility]-MRI [facility] [place] Start: 03-10-2022 End: 03-10-2022 Admission to same day surgery center DO Michael Campbell Work Phone: [facility]-Surgery Center [facility] [place] Start: 03-06-2022 End: 03-06-2022 Patient encounter procedure DO Michael Campbell Work Phone: [facility]-Pre-Surgical Testing Start: 01-10-2020 End: 01-10-2020 Patient encounter procedure ERASMO DAVIS Facility: Start: 04-14-2017 End: 04-14-2017 Emergency department patient visit [facility] Procedures Date Procedure Procedure Detail Performing Clinician Start: 10-26-2022 Ct angiography neck w/contrast/noncontrast Jeanette Natarajan MD Work Phone: Start: 10-26-2022 Basic metabolic pane l calcium total Jeanette Natarajan MD Work Phone: Start: 10-26-2022 CBC W Auto Different ial panel - Blood Jeanette Natarajan MD Work Phone: Start: 10-26-2022 GREEN YELLOW PST Jeanette cortes MD Work Phone: Start: 10-26-2022 LAVENDER - EDTA Jeanette henriquez MD Work Phone: Start: 10-26-2022 RAINBOW DRAW G1 Jeanette henriquez MD Work Phone: Start: 09-03-2022 Adult depression scr eening assessment Amanda Cisse [facility] Start: 07-25-2022 Arthroscopy of shoulder Óscar Andrew Start: 03-10-2022 Removal of pilonidal cyst DO Michael Campbell Work Phone: Start: 04-14-2017 Chest x-ray ESTEVAN DALY Start: 04-14-2017 EKG 12-LEAD ESTEVAN DALY Appendectomy Óscar Morales Cyst - pilonidal (disorder) Óscar Morales Endoscopy of nose Óscar vanessa Excision of colon Óscar vanessa Myringotomy and inse rtion of tympanic ventilation tube Óscar Morales Removal of pilonidal cyst Cornelius shahram Morales Tonsillectomy Óscar Morales Plan of Treatment Date Care Activity Detail Author Start: 05-04-2024 Adult BMI Screening Adult BMI Screening [facility] Start: 04-27-2024 Tobacco Screening Tobacco Screening [facility] Start: 02-21-2024 Influenza vaccination Influenza Vaccine [facility] Start: 09-04-2023 Depression Screening Depression Screening [facility] Start: 02-20-2023 Influenza vaccination Influenza Vaccine (Season Ended) [facility] Start: 10-26-2022 Adolescent depression screening assessment Depression Screening [facility] Start: 10-26-2022 Hepatitis C screening Hepatitis C Screening [facility] Start: 10-26-2022 HIV screening HIV Screening [facility] Start: 10-26-2022 Social Influencers of Health Screening Social Influencers of Health Screening [facility] Start: 03-26-2022 XR pre/post mri xray XR pre/post mri xray [facility] Start: 03-26-[address] [facility] Start: 03-26-2022 MR Shoulder - right WO contrast [facility] Start: 03-26-2022 MRI of right shoulder MR shoulder RT wo con [facility] Start: 03-10-[address] [facility] Start: 03-10-[address] [facility] Start: 12-25-2020 DTaP,Tdap and Td Vaccines (7 - Tdap) DTaP,Tdap and Td Vaccines (7 - Tdap) [facility] Start: 12-25-2020 DTaP,Tdap,and Td Vaccines (8 - Tdap) DTaP,Tdap,and Td Vaccines (8 - Tdap) [facility] Start: 06-30-2017 Pneumococcal Vaccine: Pediatrics (0 to 5 Years) and At-Risk Patients (6 to 64 Years) (3 - PPSV23 if available, else PCV20) Pneumococcal Vaccine: Pediatrics (0 to 5 Years) and At-Risk Patients (6 to 64 Years) (3 - PPSV23 if available, else PCV20) [facility] Start: 01-22-2016 Screening for malignant neoplasm of cervix [facility] Start: 2013 Adult BMI Follow Up Plan Adult BMI Follow Up Plan [facility] Start: 1995 COVID-19 Vaccine (#1) COVID-19 Vaccine (#1) [facility] Immunizations Immunization Date Immunization Notes Care Provider Fa cili 05-04-2023 influenza, injectabl e, quadrivalent, preservative free Amanda Cisse CMA [facility] 05-04-2023 influenza virus vacc ine, unspecified formulation Airam Cabrales RN [facility] 05-29-2021 influenza, injectabl e, quadrivalent, preservative free [facility] 05-29-2021 influenza virus vacc ine, unspecified formulation Jeanette Natarajan MD Work Phone: [facility] 03-23-2019 influenza, injectabl e, quadrivalent, preservative free [facility] 03-24-2018 influenza, injectabl e, quadrivalent, preservative free [facility] 03-04-2017 influenza, injectabl e, quadrivalent, preservative free [facility] 06-30-2016 pneumococcal conjuga te vaccine, 13 valent [facility] 03-26-2016 influenza virus vacc ine, unspecified formulation [facility] 05-01-2015 influenza virus vacc ine, unspecified formulation [facility] 03-08-2014 influenza virus vacc ine, unspecified formulation [facility] 03-29-2013 hepatitis A vaccine, adult dosage [facility] 12-30-2011 hepatitis A vaccine, adult dosage [facility] 12-30-2011 pneumococcal polysaccharide vaccine, 23 valent [facility] 12-25-2010 diphtheria, tetanus toxoids and acellular pertussis vaccine [facility] 12-25-2010 meningococcal oligosaccharide (groups A, C, Y and W-135) diphtheria toxoid conjugate vaccine (MCV4O) [facility] 04-05-2007 human papilloma viru s vaccine, quadrivalent [facility] 11-25-2006 human papilloma viru s vaccine, quadrivalent [facility] 08-26-2006 human papilloma viru s vaccine, quadrivalent [facility] 05-27-2004 hepatitis B vaccine, adult dosage [facility] 08-18-2000 diphtheria, tetanus toxoids and acellular pertussis vaccine [facility] 08-18-2000 poliovirus vaccine, inactivated [facility] 04-25-1996 diphtheria, tetanus toxoids and acellular pertussis vaccine [facility] 04-25-1996 haemophilus influenz ae type b vaccine, conjugate unspecified formulation [facility] 1995 diphtheria, tetanus toxoids and acellular pertussis vaccine [facility] 1995 haemophilus influenz ae type b vaccine, conjugate unspecified formulation [facility] 1995 poliovirus vaccine, inactivated [facility] 1995 diphtheria, tetanus toxoids and acellular pertussis vaccine [facility] 1995 haemophilus influenz ae type b vaccine, conjugate unspecified formulation [facility] 1995 hepatitis B vaccine, adult dosage [facility] 1995 poliovirus vaccine, inactivated [facility] 1995 diphtheria, tetanus toxoids and acellular pertussis vaccine [facility] 1995 haemophilus influenz ae type b vaccine, conjugate unspecified formulation [facility] 1995 hepatitis B vaccine, adult dosage [facility] 1995 poliovirus vaccine, inactivated [facility] 1995 hepatitis B vaccine, adult dosage [facility] Payers Date Payer Category Payer Self-pay [id number] 2018 Medicaid [id number] 2018 Medicaid [place] [employer] [id number] 1995 Unknown [id number] 1995 Unknown [id number] 1995 Unknown [id number] 1995 Unknown [id number] 1995 Unknown [id number] 1959 Unknown [id number] 1959 Unknown [id number] Unknown [id number] Social History Date Type Detail Facility Tobacco smoking stat [facility] Unknown if ever smoked [facility] Work Phone: Start: 1995 Sex Assigned At Female [facility] Start: 06-27-2019 End: 03-10-2022 Tobacco smoking status OHIS Never smoked tobacco (finding) [facility] Tobacco smoking status No Smokin g Status Entered [facility] Start: 07-06-2020 End: 04-27-2023 Sex Assigned At Female [facility] Start: 06-27-2019 End: 10-26-2022 Tobacco use and exposure Smokeless tobacco non-user [facility] Start: 10-26-2022 Alcohol intake Current drinke r of alcohol (finding) [facility] Start: 10-26-2022 Alcohol Comment 1-2 beers once a thu th [facility] Start: 1995 Sex Assigned At Not on file [facility] Start: 10-16-2022 End: 10-26-2022 Exposure to SARS-CoV-2 (event) Not sure [facility] Start: 04-27-2023 Alcohol intake Ex-drinker (finding) [facility] Start: 07-06-2020 End: 04-27-2023 Alcohol intake [facility] Adolescent depressio n screening assessment 3 [facility] Start: 06-27-2019 Tobacco Comment no smoke exposure [facility] Start: 01-25-2015 Sex Female (finding) [facility] Medical Equipment Procedure Code Equipment Code Equipment Origin al Text Equipment Identifier Dates SHOULDER ARTHROS COPY W/ POSSIBLE REPAIR Óscar Morales DO A 07/25/22 Unknown Shoulder R FDA Start: 07-25-2022 SHOULDER ARTHROS COPY W/ POSSIBLE REPAIR Óscar Morales DO A 07/25/22 Unknown Shoulder R FDA Start: 07-25-2022 SHOULDER ARTHROS COPY W/ POSSIBLE REPAIR Óscar Morales DO A 07/25/22 Unknown Shoulder R [facility] Start: 07-25-2022 Goals Date Patient Goal Desired Activity /State Personal health goal Comment on above: Formatting of this n ote might be different from the original. Evaluation of progress towards goal: discharge home Functional Status Date Assessment Result Facility 07-17-2022 Functional Status No [facility] Clinical Notes 07-24-2022 to 06-02-2024 Telephone Encounter - ANILA Lange - 06/02/2024 11:37 AM ESTTelephone Encounter - ANILA Lange - 06/02/2024 11:37 AM ESTTelephone Encounter - Airam Cabrales RN - 05/03/2024 2:43 PM EST Note Date & Type Note Facility 06-02-2024 Miscellaneous Notes Formattin g of this note might be different from the original. Unable to leave voicemail -trying to call to remind her of need to complete yearly labs before the end of the year. documented in this encounter [facility] 06-02-2024 Telephone encount er Note Unable to leave voicemail -trying to call to remind her of need to complete yearly labs before the end of the year. [facility] 05-03-2024 Miscellaneous Notes Formattin g of this note might be different from the original. Inside Finisher could not leave message due to voicemail not being set up. documented in this encounter [facility] 05-03-2024 Telephone encount er Note Inside Finisher could not leave message due to voicemail not being set up. [facility] 01-18-2024 Miscellaneous Notes Formattin g of this note might be different from the original. [employer] called to reschedule Karen's missed appointment. This number is no longer in service at the time. A letter will be sent to her home address. documented in this encounter [facility] 01-18-2024 Telephone encount er Note Inside Finisher called to reschedule Karen's missed appointment. This number is no longer in service at the time. A letter will be sent to her home address. [facility] 09-03-2023 Miscellaneous Notes Formattin g of this note might be different from the original. Inside Finisher veronica to schedule recheck with fvl with the Clinic documented in this encounter [facility] 09-03-2023 Telephone encount er Note Inside Finisher veronica to schedule recheck with fvl with the Clinic [facility] 08-13-2023 Miscellaneous Notes Formattin g of this note might be different from the original. Inside [employer]isher left voicemail to reschedule appt w/ fvl documented in this encounter [facility] 08-13-2023 Telephone encount er Note Inside Finisher left voicemail to [facility]che[facility] w[facility] Note Formatting of this n ote might be different from the original. Bed: ED-04 Expected date: Expected time: Means of arrival: Comments: 204 [facility] 10-26-2022 History of Presen t illness Narrative ED Note HPI CC: Chief Complaint Patient presents with Dizziness Patient states that she was at a softball yesterday when she collided with another player and hit her head on the ground. The patient lost consciousness and began to seize. Patient was transported to [place] and had an evaluation. Patient [facility] be [facility] and [facility] Patient presents with dizziness and a slight headache. HPI: Karen Nava is a 27 y.o. female history of cystic fibrosis who presents for evaluation of dizziness, headache. Patient was playing softball yesterday, collided with another player, had loss of consciousness followed by some tonic-clonic activity. She was seen at [facility], patient reports having had CT scan of the head and neck which were negative, they recommended observation but patient left AGAINST MEDICAL ADVICE. Patient states that she is not feeling better this morning, was feeling nauseous and having dizziness. Patient states that the dizziness occurs when she straightens her head out or looks to the left, dizziness resolves when she turns her head to the right. She did feel somewhat unsteady with standing this morning. Denies any extremity paresthesias or weakness. No difficulty with coordination. No chest pain shortness of breath or vomiting. Discussed with independent historian(s) -: Yes, Friend, she was at the event yesterday when the patient had the injury, reportedly had about a minute and a half of tonic-clonic activity postinjury. Review of External Record(s) -: Yes: Outside ED record The ED record from [facility] yesterday, patient had a CT scan of the head and neck, no contrast, no intracranial injury or fracture noted. Note the patient did have a moderately elevated lactic acid. Given the reported seizure-like activity suspect she did have a traumatic brain injury with associated seizure. Past History: Past Medical History: Diagnosis Date Cystic fibrosis (CMS/HCC) Past Surgical History: Procedure Laterality Date APPENDECTOMY BOWEL RESECTION SHOULDER SURGERY Right TONSILLECTOMY Social History Tobacco Use Smoking status: Never Smokeless tobacco: Never Vaping Use Vaping Use: Never used Substance Use Topics Alcohol use: Yes Comment: 1-2 beers once a month Drug use: Never No family history on file. No Known Allergies Current Outpatient Medications Medication Instructions albuterol 1.25 mg, nebulization, Every 6 hours PRN cholecalciferol (VITAMIN D-3) 400 Units, oral, Daily meclizine (ANTIVERT) 25 mg, oral, 4 times daily montelukast (SINGULAIR) 10 mg, oral, Nightly Physical Exam: Patient Vitals for the past 24 hrs: BP Temp Temp src Pulse Resp SpO2 Height Weight 10/26/22 1406 102/70 36.5 C (97.7 F) Oral 82 16 96 % 1.524 m (60 ) 54.4 kg (120 lb) CONSTITUTIONAL: Afebrile EYES: No conjunctival injection, no icterus. Pupils equal round reactive to light. No nystagmus. HENT: External ears normal, external nose normal. No focal cervical spine tenderness. RESPIRATORY: Normal chest excursion with respiration, no stridor. Lungs clear. CARDIOVASCULAR: No cyanosis. Regular rate rhythm no murmurs clicks or gallops NEUROLOGICAL: Awake, alert. No cranial nerve deficits. Patient reports subjective dizziness when she looks straight ahead or turns her head to the left, resolved she turns her head to the right. No extremity sensory deficit or weakness. No dysmetria. Patient was able to ambulate without difficulty. No ataxia. PSYCHOLOGICAL: The patient's mood and manner are appropriate. INTEGUMENTARY: Warm and dry. No rash noted. MUSCULOSKETAL: No C-spine tenderness. GI: Abdomen soft nontender MDM: Differential Diagnosis Considered -: Yes, the differential associated with the patient's presentation includes Concussion, vertebral artery dissection, benign positional vertigo, intracranial hemorrhage, intracranial mass Laboratory testing demonstrated mild leukocytosis, white count 12.7. Reviewed records from yesterday [facility], at that time white count was 19,000. CT scan of the head negative. CT angio neck negative. Repeat exam patient resting comfortably, suspect benign positional vertigo but given patient's positional changes and the fact that we have a negative CT angio of the neck. We will treat the patient with Antivert and have her follow-up as an outpatient with neurology, return if worse. Independent interpretation of EKG, rhythm strip, or radiology study? Yes, EKG: My interpretation is Normal sinus rhythm, rate 84, PA interval 132, QRS 84, QTc 446. No acute ST or T wave changes. CT Angio Neck wo and/or w Contrast Final Result Noncontrast head CT: No acute intracranial abnormality. CTA HEAD: No large vessel occlusion or clinically significant stenosis. CTA NECK: No large vessel occlusion, stenosis, or evidence of dissection. Paranasal sinus mucosal thickening. Mucus plugging and peribronchial wall thickening in the visualized lung apices consistent with cystic fibrosis. -------- FINAL REPORT -------- Dictated By: Selene Sameul Dictated Date: 10/26/2022 17:03 Assigned Physician: Selene Samuel Reviewed and Electronically Signed By: Selene Samuel Signed Date: 10/26/2022 17:10 Workstation ID: [id number] Transcribed By: Self Edit Transcribed Date: 10/26/2022 17:03 Clinical Impressions as of 10/26/22 1728 Concussion with loss of consciousness of 30 minutes or less, initial encounter Vertigo Labs Reviewed BASIC METABOLIC PANEL - Abnormal Result Value Sodium 137 Potassium 4.0 Chloride 108 (*) CO2 23 Anion Gap 6 Glucose 86 BUN 9 Creatinine 0.91 eGFR 89 BUN/Creatinine Ratio 9.9 (*) Calcium 8.7 (*) CBC WITH AUTO DIFFERENTIAL - Abnormal WBC 12.7 (*) RBC 4.20 Hemoglobin 11.9 (*) Hematocrit 37.9 MCV 90.2 MCH 28.3 MCHC 31.4 RDW 13.5 Platelets 310 MPV 10.2 Neutrophils Relative 67.4 Lymphocytes Relative 20.0 Monocytes Relative 8.9 Eosinophils Relative 2.9 Basophils Relative 0.5 Immature Granulocytes Relative 0.3 Neutrophils Absolute 8.53 (*) Lymphocytes Absolute 2.53 Monocytes Absolute 1.12 (*) Eosinophils Absolute 0.37 Basophils Absolute 0.06 Immature Granulocytes Absolute 0.04 CBC AND DIFFERENTIAL Narrative: The following orders were created for panel order CBC and differential. Procedure Abnormality Status --------- ------ CBC auto differential[[id number]] Abnormal Final result Please view results for these tests on the individual orders. Medications sodium chloride 0.9 % flush 20 mL (20 mL intravenous Given 10/26/22 164) iopamidoL (ISOVUE-370) 370 mg iodine /mL (76 %) injection 75 mL (75 mL intravenous Given 10/26/221644) PDMP Reviewed by: on IMPRESSION: 1. Concussion with loss of consciousness of 30 minutes or less, initial encounter 2. Vertigo Escalation of care including admission/observation considered -: Considered observation for serial neurologic exams however patient's injury occurred yesterday, she has not any focal neurological deficits at this time, just having some subjective vertigo intermittently. Findings consistent with benign positional vertigo, will be discharged outpatient follow-up with neurology for head injury evaluation and seizure evaluation. DISPOSITION: Discharged ED Prescriptions Medication Sig Dispense Start Date End Date Auth. Provider meclizine (ANTIVERT) 25 mg tablet Take 1 tablet (25 mg total) by mouth 4 (four) times a day for 7 days. 28 tablet 10/26/2022 11/02/2022 MD Jeanette Orozco MD 10/26/22 1435 Jeanette Natarajan MD 10/26/22 1523 Jeanette Natarajan MD 10/26/22 1550 Jeanette Natarajan MD 10/26/22 1553 Jeanette Natarajan MD 10/26/22 1724 Jeanette Natarajan MD 10/26/22 1728 documented in this encounter [facility] 10-26-2022 Miscellaneous Notes Formattin g of this note might be different from the original. Bed: ED-04 Expected date: Expected time: Means of arrival: Comments: 204 documented in this encounter [facility] 07-25-2022 Evaluation + Plan note Extrac johnathan from: Title:ANES Post-operative Note Author:Ajit Matson MD Date:07/25/22 Plan Transfer/Discharge: Transfer/Discharge Discharge when meets criteria ( From PACU to Ambulatory Surgery Unit, and To home ). Extracted from: Title:ANES Block Procedural Note Author:Ajit Matson MD Date:07/25/22 Patient: KAREN NAVA Age: 27 years Sex: Female : 1995 Associated Diagnoses: None Author: Ajit Matson MD Procedure Nerve Block Block Type: Supraclavicular block. Laterality: Right. Informed consent for anesthesia management: Anesthesia options discussed including nerve block, Description of the procedure, risks, benefits, and alternatives was provided, The patient's questions were addressed. Time out: Confirmed correct patient, procedure and site. Time: Date/Time 07/25/2022 07:05:00, performed by nathalie lake CRNA. Indication: Block for postoperative pain management as requested by surgeon. Anesthesia Method: IV Sedation with monitored anesthesia care, The patient remained awake and able to interact in a meaningful way throughout the procedure. Preparation: The patient was placed in the following position Sitting, Continuous pulse oximetry applied, Using maximal sterile barrier technique per current [facility] guidelines including hand hygeine, Guidance (Ultrasound used to identify anatomical landmarks, Using sterile gel and probe covers, Permanent image retained), The site was prepped with ChloraPrep. Procedure: Anesthetic Agent 20 ml ropivicaine 0.5%, Needle was inserted without pain or parasthesia in the conscious patient, Number of attempts 1, Negative attempt at aspiration for blood, Medial and lateral spread of the anesthestic was observed, Periodic negative attempts at aspiration of blood were made as the local was injected, No pain or parathesia were elicited with injection of the anesthetic in the conscious patient, It was idetified that the correct anesthetic agent was administered to the correct site. Complications: None, The patient tolerated the procedure as expected. Addendum by Ajit Matson MD on July 25, 2022 7:10 EST 5 mg preservative free decadron also in block Extracted from: Title:ANES Pre-operative Note Author:Beatriz Matson MD Date:07/25/22 Patient: KAREN NAVA Age: 27 years Sex: Female : 1995 Associated Diagnoses: None Author: Ajit Matson MD Preoperative Information Anesthesia Preop Info: Time patient last ate or drank 07/24/2022 21:00:00. Anesthesia history: Patient history: cystic fibrosis. Family history+: None. Informed consent: Signed by patient. Including risks, benefits, and alternatives related to the: Anesthetic plan. Re-evaluation prior to induction: Ajit Matson MD. Initial evaluation reviewed: No significant change. Review of Systems Eye: Negative. Ear/Nose/Mouth/Throat: Negative. Respiratory: Negative. Cardiovascular: Negative. Gastrointestinal: Negative. Genitourinary: Negative. Hematology/Lymphatics: Negative. Endocrine: Negative. Musculoskeletal: Negative except as documented in history of present illness. Neurologic: Negative. Health Status Allergies: Allergic Reactions (Selected) No Known Allergies, Allergies (1) ActiveReaction No Known AllergiesNone Documented Current medications: (Selected) Inpatient Medications Ordered HYDROmorphone 1 mg/mL injectable solution: 0.2 mg = 0.2 mL, Injection, IV Push, q2min PRN Pain for 10 dose(s), Stop date Limited # of times, Routine, Start date 07/25/22 6:11:00 EST, 07/25/22 6:11:00 EST Lactated Ringers IV Cindy 1000 mL 1,000 mL: 1,000 mL, IV, 100 mL/hr, Routine, Start date 07/25/22 6:11:00 EST, 10 hour(s), Total volume (mL): 1,000, 59.8 kg, 1.59, m2 Lactated Ringers IV Cindy 1000 mL 1,000 mL: 1,000 mL, IV, 150 mL/hr, Routine, Start date 07/25/22 6:00:00 EST, 6.7 hour(s), Total volume (mL): 1,000, 59.8 kg, 1.59, m2 Phenergan 25 mg/mL Injection: 12.5 mg = 0.5 mL, Injection, IV Push, q2min PRN Other (see comment) for 2 dose(s), Stop date Limited # of times, Routine, Start date 07/25/22 6:11:00 EST, 07/25/22 6:11:00 EST cefazolin additive + Sodium Chloride 0.9% intravenous solution 50 mL: 2 gram = 1 EA, Powder-Inj, IV Piggyback, PREOP, Routine, Start date 07/25/22 6:00:00 EST, 100 mL/hr, Infuse over 30 minute(s) famotidine 10 mg/mL IV Cindy: 20 mg = 2 mL, Soln-IV, IV Push, Once, Stop date 07/25/22 6:00:00 EST, Routine, Start date 07/25/22 6:00:00 EST, 07/25/22 6:00:00 EST Documented Medications Documented Albuterol (Eqv-ProAir HFA): 2 puff(s), Inhalation, q6hr, Refill(s) 0, cycstic fibrosis, Other (see comment) AquADEKs oral capsule: 1 cap(s), Oral, Daily, 60 cap(s), Refill(s) 0, Prophylaxis Creon: See Instructions, with each meal and snack Cystic fibrosis, Refills(s) 0, Other (see comment) Pulmicort Flexhaler 90 mcg/inh inhalation powder: 180 mcg, Inhalation, BID, Refill(s) 0, cystic fibrosis, Other (see comment) Pulmozyme: 2.5 mg, NEB, Daily, cystic fibrosis, Refills(s) 0, Other (see comment) Singulair: 10 mg, Oral, Daily, cystic fibrosis, Refills(s) 0, Other (see comment) Vitamin D 1000 intl units (25 mcg) Tab: 25 mcg = 1 tab(s), Oral, Daily, Refills(s) 0, Prophylaxis Zithromax 500 mg oral tablet: 500 mg = 1 tab(s), Oral, Daily, cystic fibrosis, Refills(s) 0, Other (see comment) Zyrtec Liquid Gels 10 mg oral capsule: 10 mg = 1 cap(s), Oral, Daily, PRN for allergy symptoms, # 40 cap(s), Refills(s) 0 albuterol 0.083% Inh Cindy 3 mL: 2.5 mg, 3 mL, NEB, q6hr, Refill(s) 0, cycstic fibrosis, Other (see comment) omeprazole 40 mg Cap-DR: 40 mg = 1 cap(s), Oral, Daily, Refills(s) 0, Control of stomach acid tobramycin: 300 mg, NEB, BID, cystic fibrosis, Refills(s) 0, Other (see comment), Home Medications (12) Active Albuterol (Eqv-ProAir HFA) 2 puff(s), Inhalation, q6hr albuterol 0.083% Inh Cindy 3 mL 2.5 mg = 3 mL, NEB, q6hr AquADEKs oral capsule 1 cap(s), Oral, Daily Creon See Instructions omeprazole 40 mg Cap-DR 40 mg = 1 cap(s), Oral, Daily Pulmicort Flexhaler 90 mcg/inh inhalation powder 180 mcg, Inhalation, BID Pulmozyme 2.5 mg, NEB, Daily Singulair 10 mg, Oral, Daily tobramycin 300 mg, NEB, BID Vitamin D 1000 intl units (25 mcg) Tab 25 mcg = 1 tab(s), Oral, Daily Zithromax 500 mg oral tablet 500 mg = 1 tab(s), Oral, Daily Zyrtec Liquid Gels 10 mg oral capsule 10 mg = 1 cap(s), PRN, Oral, Daily , Medications (6) Active Scheduled: (2) ceFAZolin + Sodium Chloride 0.9% Minibag 50 mL 2 gram 1 EA, IV Piggyback, PREOP famotidine 10 mg/mL IV Cindy [F] 20 mg 2 mL, IV Push, Once Continuous: (2) Lactated Ringers 1,000 mL 1,000 mL, IV, 150 mL/hr Lactated Ringers 1,000 mL 1,000 mL, IV, 100 mL/hr PRN: (2) HYDROmorphone 1 mg/mL SOLN [F] 0.2 mg 0.2 mL, IV Push, q2min promethazine 25 mg/mL Inj [F] 12.5 mg 0.5 mL, IV Push, q2min Problem list: All Problems CF (cystic fibrosis) / SNOMED CT 864920566 / Confirmed, Active Problems (1) CF (cystic fibrosis) Histories Past Medical History: Resolved Cystic fibrosis (061585139): Resolved. Family History: No family history items have been selected or recorded. Procedure history: Myringotomy and insertion of tympanic ventilation tube (8333037378). Nasal endoscopy (47879206). Appendectomy; (49963). Pilonidal cyst removal (39624389). Tonsillectomy (081816234). Colectomy (37215435). Removal of pilonidal cyst (9053960155). Social History Social & Psychosocial Habits Alcohol 07/17/2022Risk Assessment: Denies Alcohol Use Substance Abuse 07/17/2022Risk Assessment: Denies Substance Abuse Tobacco 07/17/2022Risk Assessment: Denies Tobacco Use . Physical Examination Vital Signs 07/25/2022 6:04 EST Heart Rate Monitored 71 bpm Systolic Blood Pressure 105 mmHg Diastolic Blood Pressure 66 mmHg Mean Arterial Pressure, Monitered 79 mmHg 07/25/2022 6:04 EST Heart Rate Monitored 66 bpm SpO2 100 % 07/25/2022 6:03 EST Respiratory Rate 16 br/min 07/25/2022 6:03 EST Temperature Axillary 36.4 DegC 07/25/2022 6:03 EST Systolic Blood Pressure 106 mmHg Diastolic Blood Pressure 69 mmHg Mean Arterial Pressure, Monitered 82 mmHg Vital Signs (last 24 hrs) Last Charted Temp [place]77.4 DegC (JUL 25 06:03) NTB247 mmHg (JUL 25 06:04) DBP66 mmHg (JUL 25 06:04) TzP6239 % (JUL 25 06:04) Airway: Mallampati classification: II (soft palate, fauces, uvula visible). Distance: Adequate. Respiratory: Lungs are clear to auscultation, few crackles in upper lobes. Cardiovascular: Regular rhythm. Review / Management Results review: No qualifying data available . Plan [place] [employer] (ASA) physical status classification: Class III. Addendum by Ajit Matson MD on July 25, 2022 6:19 EST interscalene block as well [facility]02-03-2023 Hospital Discharge instructions Patient Education 07/25/2022 09:53:02 Shoulder Cryocuff Patient Instructions - FT (CUSTOM) 07/25/2022 09:53:02 Post Op Patient Instructions - FT (Custom) (CUSTOM) 07/25/2022 07:08:36 Alice Morales - After Your Shoulder Arthroscopy (Custom) [place], [place] [facility] AFTER YOUR SHOULDER ARTHROSCOPY 1.Diet: Begin with a liquid diet and advance to your normal diet as tolerated. 2.Activity: You may remove your sling for bathing and to perform gentle range of motion exercises for the hand,wrist, and elbow. Bend and straighten your elbow and wrist several times per day to minimize stiffness. Keep your elbow in close to your side when performing these exercises. Do not move your shoulder until instructed by your surgeon. Swelling after surgery is normal and this will gradually decrease over time. All sports activities are discouraged, at least until your first post-operative visit at which timewe will discuss how and when to resume sports. 3. Driving: Driving is legal. If you are involved in an accident, you must be able to prove that you maintainedfull control of your vehicle. For this reason, it is advised that you do not drive until your strength returns. You should not operate a vehicle or heavy machinery if you are taking narcotic pain medication. 4. Pain: If pain persists despite rest, elevation, and medication, contact your surgeon. You will be given a prescription for pain medications prior to leaving the hospital. Please inform us of any known drug allergy. If you have any problems with the medication, it should be discontinued and our office notified. The sensation of splashing of fluid inside the joint is not cause for concern. It represents residual fluids from surgery and they will be absorbed. Elevation of the arm and application of an ice pack will minimize swelling and discomfort in the first 48 hours after surgery. 5. Bandage: Soft compression dressing has been applied to your shoulder. This dressing should be comfortable and absorb any leakage of fluid or blood from your operated shoulder. Although the dressing may becomemoist or blood stained, this is not usually a cause for concern. If this persists, notify your surgeon. You may remove the dressing 48 hours after your surgery. If you have a bandage in your armpit, leave this in place until follow up. Apply betadine and band-aids to the small incisions once or twice daily as needed. 6.Incisions: The portals of entry may be sore and develop bruising over the next several days. The bruising eventually resolves and does not require any special care. Do not apply creams or lotions to your shoulder. Your portals will heal well on their own. 7.Bathing: You may shower 48 hours after surgery. Bathing or soaking in water should be avoided until your first post-operative visit. 8.Precautions: If you develop fever (101 degrees or above), increasing pain (not relieved by rest, elevation, ice,and medication as prescribed), redness or swelling in your shoulder or arm, please contact the office or the hospital. If you notice increased drainage from the operative portals after the third day,this should also be reported. 9.Return Visit: Your first post-operative follow-up appointment is generally between 7 and 14 days after discharge from the hospital. You will be given an appointment card with your appointment information. Do not hesitate to call the office or the hospital if any problems or questions arise before your appointment. Óscar Morales, DO [facility] [address] [place] [address] Reviewed: Follow Up Care 06/27/2022 16:11:46 With:Óscar Morales Address: [address] [place] [address] Business (1) When: Unknown [facility]02-02-2023 Note [id number]:[id number] Evaluation + Plan note Future Appointments Appointment Date:07/25/2022 07:30:00 AM Scheduled Provider: Location:[facility] assessment information available [facility] Work Phone: Evaluation note* Diagnosis Concussion with loss of consciousness of 30 minutes or less, initial encounter- Primary Vertigo Dizziness and giddiness documented in this encounter [facility] course Narrative No data available for this section [facility] instructions No data available for this section [facility] Discharge instructions* Attachments The following attachments cannot be sent through Care Everywhere. * Vertigo (Bulgarian) * Acute Concussion (Bulgarian) documented in this encounterAl[facility]y [facility] NetworkInstructionsNot on filedocumented in this encounterProMedica Health SystemProgress note No data available for this section [facility] Summary Purpose Family History Relationship Condition Age at Onset Recorded Date/T analy Not Specified No pertinent family history Unknown Advance Directives Advance Directive Response Recorded Date/ Time Advance Directives No April 3:44pm Latest Code Status on File Code Status Date Activated Date Inactivated Comments Full Code 04/29/2023 1:28 PM 05/04/2023 3:08 PM Code Status History Code Status Date Activated Date Inactivated Comments Full Code 04/24/2019 3:19 PM 04/29/2019 4:00 PM Full Code 02/03/2017 8:57 PM 02/13/2017 7:51 PM Full Code 06/26/2016 5:02 PM 06/30/2016 4:14 PM Date Activated Date Inactivated Comments 04/29/2023 1:28 PM 05/04/2023 3:08 PM Date Activated Date Inactivated Comments 04/24/2019 3:19 PM 04/29/2019 4:00 PM Date Activated Date Inactivated Comments 02/03/2017 8:57 PM 02/13/2017 7:51 PM Date Activated Date Inactivated Comments 06/26/2016 5:02 PM 06/30/2016 4:14 PM Chief Complaint and Reason for Visit Chief Complaint Pilonidal Cyst Chief Complaint Pilonidal Cyst Pilonidal Cyst Chief Complaint Pilonidal Cyst Pilonidal Cyst shoulder weakness Additional Source Comments INFORMATION SOURCE (unrecogn ized section and content) DATE CREATED AUTHOR 12/15/2017 [facility] DATE CREATED AUTHOR AUTHOR'S ORGANIZ ATION 01/14/2020 [facility] DATE CREATED AUTHOR AUTHOR'S ORGANIZ ATION 08/01/2022 [facility] DATE CREATED AUTHOR AUTHOR'S ORGANIZ ATION 10/28/2022 [facility] DATE CREATED AUTHOR AUTHOR'S ORGANIZ ATION 11/01/2022 [facility] DATE CREATED AUTHOR AUTHOR'S ORGANIZ ATION 07/05/2023 [facility] DATE CREATED AUTHOR AUTHOR'S ORGANIZ ATION 06/04/2024 [facility] Care Teams (unrecognized sec tion and content) Team Status: Inactive Member Role Status Dates Michael Campbell DO Attending Provider Active Services Family [facility] Primary Care Provider Active Team Status: Active Member Role Status Dates Services [facility] Primary Care Provider Active Team Status: Inactive Member Role Status Dates Services [facility] Primary Care Provider Active Michael Christianson DO Attending Provider Active Lissette Merino MD RES Referring Provider Active Dustless Operator Relationship Specialty Start Date End Date Physician, No Pcp PCP - General 10/26/22 Dustless Operator Relationship Specialty Start Date End Date Iqra Hebert, TICKET COLLECTOR OR USHER-JAVA SUPPORT ENGINEER [employer], [address] [address] PCP - General Pediatric Pulmonology 09/03/22 Dustless Operator Relationship Specialty Start Date End Date Iqra Hebert, TICKET COLLECTOR OR USHER-JAVA SUPPORT ENGINEER [address] [employer], [address] [address] PCP - General Pediatric Pulmonology 09/03/22 Goals (unrecognized section and content) Goals may be documented in a n alternate section No data available for this section No data available for this section Reason for Visit (unrecogniz ed section and content) Reason Comments Dizziness Patient states that she was at a softball yesterday when she collided with another player and hit her head on the ground. The patient lost consciousness and began to seize. Patient was transported to [place] and had an evaluation. Patient was supposed to be admitted and monitored over night but left [place] ama. Patient presents with dizziness and a slight headache. Ordered Prescriptions (unrec ognized section and content) Prescription Sig Dispensed Refills Start Date End Da te meclizine (ANTIVERT) 25 mg tablet Take 1 tablet (25 mg total) by mouth 4 (four) times a day for 7 days. 28 tablet 0 10/26/2022 11/02/2022 Scheduled Active and Recently Administ ered Medications (unrecognized section and content) Medication Order 10/24/2022 10/25/2022 10/26/2022 iopamidoL (ISOVUE-370) 370 mg iodine /mL (76 %) injection 75 mL (COMPLETED) 75 mL, intravenous, Once in imaging, Starting on 10/26/22 at 1645, For 1 dose 1645 (Given - Provid er: Lizzette Taylor) sodium chloride 0.9 % flush 20 mL (COMPLETED) 20 mL, intravenous, Once, On 10/26/22 at 1646, For 1 dose 1646 (Given - Provid er: Lizzette Taylor) FOR RECORDS PERTAINING TO PATIENTS WHO ARE OR HAVE BEEN ENROLLED IN A CHEMICAL DEPENDENCY/SUBSTANCEABUSE PROGRAM, SOME INFORMATION MAY BE OMITTED. This clinical summary was aggregated from multiple sources. Caution should be exercised in using it in the provision of clinical care. This summary normalizes information from multiple sources, and as a consequence, information in this document may materially change the coding, format and clinical context of patient data. In addition, data may be omitted in some cases. CLINICAL DECISIONS SHOULD BE BASED ON THE PRIMARY CLINICAL RECORDS. [facility]. provides no warranty or guarantee of the accuracy or completeness of information in this document.
[2024-11-03 19:59] LABS: Basophils Absolute Auto 0.1 10^3/uL (0.0-0.1); Basophils Percent Auto 0.4 % (0.2-2.0); Eosinophils Absolute Auto 0.2 10^3/uL (0.0-0.7); Eosinophils Percent Auto 1.2 % (0.9-7.0); Hematocrit 37.1 % (36.0-48.0); Hemoglobin 12.1 g/dL (12.0-16.0); Immature Granulocytes Abs Auto 0.06 10^3/uL (0.00-0.03); Immature Granulocytes Pct Auto 0.4 % (0.0-0.5); Lymphocytes Absolute Auto 1.6 10^3/uL (1.2-3.8); Lymphocytes Percent Auto 10.5 % (20.5-60.0); Mean Corpuscular HGB Conc 32.6 g/dL (29.9-35.2); Mean Corpuscular Hemoglobin 29.1 pg (26.7-34.0); Mean Corpuscular Volume 89.2 fL (81.0-99.0); Mean Platelet Volume 9.4 fL (9.5-13.5); Monocytes Absolute Auto 1.5 10^3/uL (0.3-0.8); Monocytes Percent Auto 9.9 % (1.7-12.0); Neutrophils Absolute Auto 11.8 10^3/uL (1.4-6.5); Neutrophils Percent Auto 77.6 % (43.0-75.0); Platelet Count 307 10^3/uL (150-450); Red Blood Count 4.16 10^6/uL (4.20-5.40); Red Cell Distribution Width 13.2 % (11.0-15.0); White Blood Count 15.2 10^3/uL (4.0-11.0)
[2024-11-03] MEDS: IBUPROFEN 600 MG TABLET PO (19:59)
[2024-11-03] MEDS: ACETAMINOPHEN 325 MG TABLET 650 MG PO (19:59)
[2024-11-03 20:09] LABS: Bilirubin Urine NEGATIVE (NEGATIVE); Blood Urine NEGATIVE (NEGATIVE); Clarity Urine CLEAR (CLEAR); Color Urine LT. YELLOW (YELLOW); Glucose Urine UA NEGATIVE (NEGATIVE); Ketones Urine NEGATIVE (NEGATIVE); Leukocyte Esterase Urine SMALL (NEGATIVE); Nitrite Urine POSITIVE (NEGATIVE); Protein Urine NEGATIVE (NEG/TRACE); Urobilinogen Urine 0.2 EU/dL (0.2-1.0)
--- NOTE | 2024-11-03 20:13 | ED.GENADUL1 ---
HPI HPI - General Adult General Chief complaint: Arrhythmia/Palpitations Stated complaint: LIGHT HEADED, DIZZY Time Seen by Provider: 11/03/24 19:34 Source: patient Mode of arrival: walk-in History of Present Illness HPI narrative: This 29-year-old female with a history of cystic fibrosis presents for evaluation of dizziness and tachycardia. The patient states that yesterday she started having some back pain while at work. She thought it was related to the high-heeled shoes she wears at work. Today while at work her watch kept alarming her that her pulse was greater than 140 for over 20 minutes at a time. She took some Tylenol earlier in the day. She has a mild headache. She has no neck pain or stiffness. She has a chronic cough which is unchanged. She does not report any specific shortness of breath. She states that she had a kidney infection in the past after having a urinary tract infection and became septic. She denies any urinary frequency urgency dysuria or hematuria but states she did not have that when she had a kidney infection in the past. At this time she has some right flank pain. She is status post a partial bowel resection as a baby likely related to her cystic fibrosis and also has had an appendectomy in the past. She denies tobacco use. She is not on any prophylactic antibiotics. She states she has not taken any other medications that are prescribed to her for the past several years. Related Data Home Medications ?Medication ?Instructions ?Recorded ?Confirmed No Known Home Medications 11/03/24 11/03/24 Allergies Allergy/AdvReac Type Severity Reaction Status Date / Time No Known Drug Allergies Allergy Verified 05/05/24 21:56 Opioid HPI Opioid Management Most Recent Opioid Data: Last AUG Pain Assessment Today, 19:59 Review of Systems ROS Status of ROS 10 or more systems reviewed and unremarkable except as noted in history and below [facility] Medical History (Updated 11/03/24 @ 22:22 by Martina Moreno MD) Hx of sepsis ?Z86.19 - Personal history of other infectious and parasitic diseases (ICD-10) UTI (urinary tract infection) ?N39.0 - Urinary tract infection, site not specified (ICD-10) Cystic fibrosis ?E84.9 - Cystic fibrosis, unspecified (ICD-10) Social History Little interest or pleasure in doing things: not at all Feeling down, depressed, or hopeless: not at all Exam Narrative Exam Narrative: Vital signs and Nursing Notes reviewed: Patient is febrile with a temperature of 103, tachycardic with a pulse in the 140s, blood pressure is stable at 122/82, she is not hypoxic with pulse ox of 99% on room air General: Awake, alert, oriented, mildly ill-appearing but nontoxic, no respiratory distress HEENT: Normocephalic atraumatic, mucous membranes are moist and pink, eyes are clear, normal conjunctiva, vision is grossly intact, posterior pharynx is normal in appearance. Neck: Supple, no meningeal signs, no anterior or posterior cervical lymphadenopathy Chest: Lungs are clear to auscultation with good air entry, there is no wheezing rhonchi or rales appreciated no accessory muscle use, patient is speaking in complete sentences-no chest wall tenderness to palpation CVS: Regular rate and rhythm S1-S2, tachycardic with pulse in the 130s to 140s, no murmurs rubs or gallops, pulses are brisk and equal bilaterally ABD: Soft, nondistended, nontender, no rebound guarding or rigidity, bowel sounds are normal, no pulsatile masses appreciated Extremities: Moving all extremities, no lower extremity tenderness or swelling noted, negative Homans' sign, pulses are brisk and equal bilaterally Skin: Normal in appearance without rash,pallor, petechiae or purpura Neuro: No focal deficits Constitutional Vital Signs, click to edit/add: Last Vital Signs Temp 99.1 F 11/03/24 21:14 Pulse 110 H 11/03/24 21:10 Resp 31 H 11/03/24 21:10 BP 122/82 11/03/24 19:30 Pulse Ox 100 11/03/24 19:50 Course Vital Signs Vital signs: Vital Signs Temperature 103 F H 11/03/24 19:30 Pulse Rate 143 H 11/03/24 19:30 Respiratory Rate 20 11/03/24 19:30 Blood Pressure 122/82 11/03/24 19:30 Pulse Oximetry 99 11/03/24 19:30 Temperature 99.1 F 11/03/24 21:14 Pulse Rate 110 H 11/03/24 21:10 Respiratory Rate 31 H 11/03/24 21:10 Blood Pressure 122/82 11/03/24 19:30 Pulse Oximetry 100 11/03/24 19:50 Medical Decision Making [facility] Narrative Medical decision making narrative: This 29-year-old female with a history of cystic fibrosis who gets her medical care at [facility] presents for evaluation of fever, chills, generalized dizziness with right low back pain. She does not have any urinary symptoms. She does have a chronic cough. Her symptoms started yesterday with some mild low back pain that she thought was related to wearing high-heeled shoes. Today at work her watch alerted her that her pulse was in the 140s for greater than 20 minutes several times. She came to the emergency department for evaluation of fever, dizziness and flank pain. She is not having any nausea or vomiting. She denies any chest pain. She has no headache or nuchal rigidity. He does have some tenderness in the right lower flank region. Abdomen is otherwise soft and nondistended. She is status post partial bowel resection as an infant and appendectomy. Upon arrival she was febrile with a fever of 103 and tachycardic with a pulse in the 140s. An IV was placed and a septic workup was ordered. Her white count is elevated 50.1 with a stable hemoglobin. Electrolytes are normal. Liver function tests are normal. Urine is positive for nitrites and 5-10 white blood cells per high-power field. Lactic acid is elevated at 2.5. Influenza and COVID-19 testing is negative. 2 sets of blood cultures are pending at this time. After urine resulted she was medicated with 2 g of IV Rocephin. Her chest x-ray shows possible developing right upper lobe infiltrate versus scar tissue or atelectasis. She did have a pneumonia in this area in the past. She was also medicated with IV Zithromax. She was given Tylenol and Motrin for her fever with clinical improvement. On reevaluation she states she is feeling much better. She prefers to be transferred to [facility] where she receives her specialized medical care for cystic fibrosis. The case was discussed with the hospitalist, Dr. Faustin and she is accepted for admission to the step-down unit at [facility]. CT scan of the abdomen pelvis with IV contrast was ordered. It shows unremarkable lung bases with normal-appearing liver spleen pancreas kidneys adrenal glands and gallbladder. Stomach is decompressed without dilation or obstruction. There is multiple fluid-filled loops of small bowel with significant distention of the colon with severe colonic stool burden. There is no abdominal lymphadenopathy peritoneum or ascites. Retroperitoneum appears unremarkable. Normal abdominal aorta. No pelvic adenopathy or ascites is noted. Inguinal regions are unremarkable. Bladder appears unremarkable and there is no acute osseous abnormality. Patient admits that she has chronic constipation likely related to her cystic fibrosis. She states she has a bowel movement about every other week. Chest x-ray was also reviewed by radiology that shows no new consolidation with stable appearance of the upper lungs compared to 05/05/2024 with no pulmonary edema pleural effusion or pneumothorax. Patient was reevaluated multiple times and is clinically improving. She remains awake alert with no oxygen requirements. Her temperature has come down to 99 and her pulse is 114 at time of this dictation. Her blood pressure is remained stable at 122/82. She requested to be transferred by private vehicle but I did explain to her that she will be going to a stepdown unit and she is agreeable to ambulance transfer. Medical Records Medical records reviewed: Yes I reviewed the patient's medical records Lab Data Lab results reviewed: Yes I reviewed the patient's lab results Labs: Lab Results 11/03/24 11/03/24 11/03/24 Range/Units 19:40 19:52 19:53 WBC 15.2 H (4.0-11.0) 10^3/uL RBC 4.16 L (4.20-5.40) 10^6/uL Hgb 12.1 (12.0-16.0) g/dL Hct 37.1 (36.0-48.0) % MCV 89.2 (81.0-99.0) fL MCH 29.1 (26.7-34.0) pg MCHC 32.6 (29.9-35.2) g/dL RDW 13.2 (11.0-15.0) % Plt Count 307 (150-450) 10^3/uL MPV 9.4 L (9.5-13.5) fL Neut % (Auto) 77.6 H (43.0-75.0) % Lymph % (Auto) 10.5 L (20.5-60.0) % [place] % (Auto) 9.9 (1.7-12.0) % Eos % (Auto) 1.2 (0.9-7.0) % Baso % (Auto) 0.4 (0.2-2.0) % Neut # (Auto) 11.8 H (1.4-6.5) 10^3/uL Lymph # (Auto) 1.6 (1.2-3.8) 10^3/uL [place] # (Auto) 1.5 H (0.3-0.8) 10^3/uL Eos # (Auto) 0.2 (0.0-0.7) 10^3/uL Baso # (Auto) 0.1 (0.0-0.1) 10^3/uL Abs Immat Gran (auto) 0.06 H (0.00-0.03) 10^3/uL Imm/Tot Granulo (auto) 0.4 (0.0-0.5) % Sodium 136 (136-145) mmol/L Potassium 3.9 (3.5-5.1) mmol/L Chloride 101 (98-107) mmol/L Carbon Dioxide 24.3 (21.0-32.0) mmol/L Anion Gap 14.6 BUN 6.0 L (7.0-18.0) mg/dL Creatinine 1.00 (0.55-1.02) mg/dL Est GFR ( Amer) >60 (>=60 mL/min/1.73m^2) Est GFR (Non-Af Amer) >60 (>=60 mL/min/1.73m^2) BUN/Creatinine Ratio 6.0 Glucose 102 (74-106) mg/dL Lactate 2.5 H* (0.4-2.0) mmol/L Calcium 8.3 L (8.5-10.1) mg/dL Magnesium 1.5 L (1.8-2.4) mg/dL Total Bilirubin 0.5 (0.2-1.0) mg/dL AST 17 (15-37) U/L ALT 23 (14-59) U/L Alkaline Phosphatase 108 (46-116) U/L Troponin I High Sens <4.0 L (4.0-51.3) pg/mL NT-Pro-B Natriuret Pep 42.0 (<=450.0) pg/mL Total Protein 7.2 (6.4-8.2) g/dL Albumin 3.3 L (3.4-5.0) g/dL Globulin 3.9 g/dL Albumin/Globulin Ratio 0.8 Urine Color Lt. yellow (YELLOW) Urine Clarity Clear (CLEAR) Urine pH 6.0 (5.0-9.0) Ur Specific [place] 1.010 (1.005-1.025) Urine Protein Negative (NEG/TRACE) mg/dL Urine Glucose (UA) Negative (NEGATIVE) mg/dL Urine Ketones Negative (NEGATIVE) mg/dL Urine Occult Blood Negative (NEGATIVE) Urine Nitrite Positive A (NEGATIVE) Urine Bilirubin Negative (NEGATIVE) Urine Urobilinogen 0.2 (0.2-1.0) EU/dL Ur Leukocyte Esterase Small A (NEGATIVE) Urine RBC None seen (0-2) #/HPF Urine WBC 5-10 A (NONE SEEN) #/HPF Ur Squamous Epith Cells Moderate A (NONE/RARE) #/LPF Urine Crystals None seen (None Seen) #/HPF Urine Bacteria Moderate A (NONE SEEN) #/HPF Urine Casts None seen (NONE SEEN) #/LPF Urine Mucus None seen (NONE SEEN) Ur Culture Indicated? Yes-[facility] [place] Urine HCG, Qual Negative (NEGATIVE) Influenza Type A Ag Negative Influenza Type B Ag Negative SARS-CoV-2 Ag (CV2AG) Negative (NEGATIVE) ECG Data Attestation: I personally reviewed and interpreted this ECG as follows: (Sinus tachycardia at 138 bpm, normal axis, short NE interval, nonspecific ST changes, no acute ST segment elevation or T wave inversion) Discharge Plan Discharge Chief Complaint: Arrhythmia/Palpitations Clinical Impression: Acute pyelonephritis, Constipation by delayed colonic transit, Cystic fibrosis Patient Disposition: [facility] Time of Disposition Decision: 21:39 Discharge Location: [facility] Condition: Fair
[2024-11-03 20:14] LABS: Bacteria Urine MODERATE #/HPF (NONE SEEN); Mucus Urine NONE SEEN (NONE SEEN); RBC Urine NONE SEEN #/HPF (0-2); Squamous Epithelial Cell Urine MODERATE #/LPF (NONE/RARE)
[2024-11-03 20:15] LABS: Cast Seen? NONE SEEN #/LPF (NONE SEEN); Crystals Seen? None Seen #/HPF (None Seen); Urine Culture Indicated YES-FRMC
[2024-11-03 20:16] LABS: Influenza Virus A Antigen Negative; Influenza Virus B Antigen Negative; Internal Control Within Normal Limits; SARS-CoV-2 Ag NEGATIVE (NEGATIVE)
[2024-11-03 20:21] LABS: Alanine Aminotransferase 23 U/L (14-59); Albumin Globulin Ratio 0.8; Albumin Level 3.3 g/dL (3.4-5.0); Alkaline Phosphatase 108 U/L (46-116); Anion Gap 14.6; Aspartate Amino Transferase 17 U/L (15-37); Bilirubin Total 0.5 mg/dL (0.2-1.0); Calcium 8.3 mg/dL (8.5-10.1); Carbon Dioxide 24.3 mmol/L (21.0-32.0); Chloride 101 mmol/L (98-107); Estimated GFR (African America >60 (>=60 mL/min/1.73m^2); Estimated GFR (Non-African Ame >60 (>=60 mL/min/1.73m^2); Globulin 3.9 g/dL; Glucose 102 mg/dL (74-106); Magnesium 1.5 mg/dL (1.8-2.4); Potassium 3.9 mmol/L (3.5-5.1); Sodium 136 mmol/L (136-145); Total Protein 7.2 g/dL (6.4-8.2); Troponin I High Sensitivity <4.0 pg/mL (4.0-51.3)
[2024-11-03 20:23] LABS: Lactate/Lactic Acid 2.5 mmol/L (0.4-2.0)
[2024-11-03 20:35] LABS: HCG Qualitative Urine* NEGATIVE (NEGATIVE); Internal Control Within Normal Limits
[2024-11-03] MEDS: CEFTRIAXONE 2,000 MG in 0.9 % SODIUM CHLORIDE 100 ML 200 MG IV (20:38)
[2024-11-03] MEDS: AZITHROMYCIN 500 MG in 0.9 % SODIUM CHLORIDE 250 ML 250 MG IV (21:55)
[2024-11-03 23:02] LABS: Lactate/Lactic Acid 1.7 mmol/L (0.4-2.0)
== END 2024-11-04 00:03 | disposition short-term general hospital (02) ==
PROVIDERS: Emergency Provider Emergency Medicine
DX: N10 Acute pyelonephritis (principal); E84.9 Cystic fibrosis, unspecified; K59.09 Other constipation; Z87.440 Personal history of urinary (tract) infections; Z90.49 Acquired absence of other specified parts of digestive tract; R50.9 Fever, unspecified; Z87.01 Personal history of pneumonia (recurrent)
CPT/HCPCS: 36415; 71045; 74177; 80053; 81001; 83605; 83735; 83880; 84484; 84703; 85025; 87040; 87086; 87088; 87186; 87804; 87811; 93005; 96361; 96365; 96366; 96368; 99285; J0456; J0696; Q9967